=== PATIENT | male | born 1945 | race Caucasian/White ===

== ENCOUNTER 2019-05-10 17:16 | Emergency (ER) | payer BC, MEDICARE ==
[2019-05-10 18:00] VITALS: BP 134/86; PULSE 77; RESP 18; TEMP 98
--- NOTE | 2019-05-10 18:09 | ED ---
ENT HPI - General Chief complaint: ENT Stated complaint: gasoline in ear Time Seen by Provider: 05/10/19 18:06 Source: patient Mode of arrival: ambulatory Limitations: no limitations - History of Present Illness Initial comments: 73-year-old male presents emergency room for evaluation of gasping left ear. Patient states 4 hours prior to arrival he was working on a car when a gas line splashed him in the side of face he turned his head and the glass went into his ear denies involvement of the eye. Patient denies any pelletier of the face. Patient states that he has pain in the ear. He states has got better over the. The past 2 hours, he denies any bleeding of the ears. Patient states he was using a Q-tip and splashed some water with the ear. Patient denies any hearing loss or sharp pain he states it is burning. Remaining review of systems negative. Upon arrival patient appears well no signs acute distress in good spirits laughing and joking with as well as myself. - Related Data Allergies Allergy/AdvReac Type Severity Reaction Status Date / Time ciprofloxacin [From Cipro] Allergy Unknown Verified 05/10/19 18:00 Review of Systems ROS Statement: Those systems with pertinent positive or pertinent negative responses have been documented in the HPI. ROS Other: All systems not noted in ROS Statement are negative. Past Medical History Past Medical History: Hypertension History of Any Multi-Drug Resistant Organisms: None Reported Past Surgical History: No Surgical Hx Reported Past Psychological History: No Psychological Hx Reported Smoking Status: Light tobacco smoker Past Alcohol Use History: None Reported Past Drug Use History: None Reported General Exam - General Exam Comments Initial Comments: General: The patient is awake and alert, in no distress, and does not appear acutely ill. Eye: Pupils are equal, round and reactive to light, extra-ocular movements are intact. No nystagmus. There is normal conjunctiva bilaterally. No signs of icterus. Ears, nose, mouth and throat: There are moist mucous membranes and no oral lesions. Tympanic membranes are not erythematous no evidence of perforation. External auditory canal of the left. Appears morning around and conversant the right. No evidence of pelletier. Patient does smell of gasoline. No effusion of the tympanic membrane. Cardiovascular: There is a regular rate and rhythm. No murmur, rub or gallop is appreciated. Respiratory: Lungs are clear to auscultation, respirations are non-labored, breath sounds are equal. No wheezes, stridor, rales, or rhonchi. Musculoskeletal: Normal ROM, no tenderness. Strength 5/5. Sensation intact. Radial pulses equal bilaterally 2+. Neurological: A&O x 3. CN II-XII intact grossly, There are no obvious motor or sensory deficits. Coordination appears grossly intact. Speech is normal. Skin: Skin is warm and dry and no rashes or lesions are noted. Psychiatric: Cooperative, appropriate mood & affect, normal judgment. Limitations: no limitations Course Vital Signs 05/10/19 05/10/19 17:58 19:12 Temperature 98.0 F 98.0 F Pulse Rate 77 77 Respiratory 18 18 Rate Blood Pressure 134/86 134/86 O2 Sat by Pulse 96 96 Oximetry Medical Decision Making - Medical Decision Making Patient control contacted they state there is no intervention. Discussed case with Dr. Valerio he feels there is no intervention at this time. I did lightly flushed the eardrum. No severe pain during flushing. Patient does smell slightly of gasoline. No specific noted on ear examination. No tympanic membrane perforation. Patient appears well healing is intact to finger rub testing. Patient states that the pain has been subsiding gradually as the hours from the time of exposure increased. At this facility. Patient is stable for discharge with outpatient primary care follow-up. Return parameters were discussed the patient was discharged appearing well Disposition Clinical Impression: Left ear pain Narrative: Gasoline exposure inside left ear Disposition: HOME SELF-CARE Condition: Good Instructions (If sedation given, give patient instructions): Ear Foreign Body (ED), Earache (ED) Additional Instructions: Please use medication as discussed. Please follow-up with family doctor in the next 2 days.. Please return to emergency room if the symptoms increase or worsen or for any other concerns. Is patient prescribed a controlled substance at d/c from ED?: No Referrals: Raymundo Vargas MD [Primary Care Provider] - 1-2 days Time of Disposition: 18:23
== END 2019-05-10 19:12 | disposition home or self-care (01) ==
LOC: EC 17:16
DX: H92.02 Otalgia, left ear (principal); F17.200 Nicotine dependence, unspecified, uncomplicated; Z88.1 Allergy status to other antibiotic agents
CPT/HCPCS: 99282

== ENCOUNTER → 2023-09-04 | Outpatient (CLI) | payer MEDICARE ==
[2023-09-04 16:36] LABS: African American GFR (CKD) 62 (>60 ml/min/1.73 sqM); Blood Urea Nitrogen 23 mg/dL (9-20); Non-African American GFR(CKD) 54 (>60 ml/min/1.73 sqM)
--- NOTE | 2023-09-05 06:47 | CT ---
EXAMINATION TYPE: CT angio thor/abd pel aorta DATE OF EXAM: 09/04/2023 COMPARISON: None. HISTORY: Thoracic aortic aneurysm CT DLP: 1504.7 mGycm. Automated Exposure Control for Dose Reduction was Utilized. CONTRAST: CTA scan of the thorax, abdomen and pelvis is performed without and with IV Contrast, patient injecte d with 80 mL of Isovue 370. Aneurysm protocol with 3-D reconstructed images created on an independent workstation and reviewed FINDINGS: Vascular: No suspicious hyperdense material on the noncontrast images to suggest intramural hematoma. Normal three-vessel origin from the aortic arch with mild peripheral plaque. No significant stenosis . Patent bilateral renal arteries without significant stenosis. More moderate peripheral mixed plaque in the tortuous abdominal aorta measuring up to 3.0 cm in diameter coronal image 75. 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 No significant stenosis in the iliac ar mitra branches extending into femoral artery branches were there is moderate peripheral calcified plaq ue identified. No linear hypodensity to suggest dissection. Ascending aorta measures up to 4.8 cm and the root coronal image 48. Ascending aorta measures 3.8 cm diameter at level of the main pulmonary a rtery axial image 82. No significant stenosis in the celiac artery or SMA. LUNGS: Mild to minimal bibasilar linear scarring and/or atelectasis otherwise lungs are clear. Ther e is no pleural effusion or pneumothorax seen. The tracheobronchial tree is patent. MEDIASTINUM: There are no greater than 1 cm hilar or mediastinal lymph nodes. No cardiomegaly or pe ricardial effusion is seen. Moderate to severe three-vessel coronary artery calcification is noted. LIVER/GB: Large intraluminal calcified gallstone. Gallbladder shows no surrounding ill-defined fluid or fat stranding. There is 6.7 cm simple appearing thin-walled cyst in the liver dome. A few subcenti meter low dense lesions throughout the liver too small to further characterize but presumably benign PANCREAS: No significant abnormality is seen. SPLEEN: No significant abnormality is seen. ADRENALS: Low-density change of both adrenal glands consistent with benign lipid rich hyperplasia. KIDNEYS: No significant abnormality is seen. BOWEL: Sigmoid colonic diverticula. No CT evidence for acute diverticulitis GENITAL ORGANS: No gross abnormality seen. LYMPH NODES: No greater than 1cm abdominal or pelvic lymph nodes are appreciated. OSSEOUS STRUCTURES: Multilevel spurring in the thoracolumbar spine. Multilevel Disc space narrowing i n the lumbar spine. OTHER: No significant additional abnormality is seen. IMPRESSION: Ascending aortic aneurysm up to 4.8 cm at the level of the aortic root. Tortuous course t o the descending aorta without definitive greater than 3.0 cm AAA. 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
== END | disposition home or self-care (01) ==
LOC: RADCTMAIN 14:58
PROVIDERS: ATTEND Internal Medicine
DX: I71.21 Aneurysm of the ascending aorta, without rupture (principal); I72.3 Aneurysm of iliac artery
CPT/HCPCS: 82565; 84520; 71275; 36415; 74174; Q9967

== ENCOUNTER 2023-11-05 10:16 | Day surgery (SDC) | payer MEDICARE ==
[~2023-11-05 10:16] MED LIST: ALPRAZolam 0.25 MG TAB PO PRN; ALPRAZolam 0.5 MG TAB PO PRN; HEPARIN SODIUM,PORCINE (1 ML) 2,500 UNIT in SODIUM CHLORIDE 0.9% 250 ML IRRIGATION PRN; HEPARIN SODIUM,PORCINE 10,000 UNIT in SODIUM CHLORIDE 0.9% 1,000 ML IRRIGATION PRN; NITROGLYCERIN SL TABS 0.4 MG TAB SUBLINGUAL PRN
[2023-11-05] MEDS: SODIUM CHLORIDE 0.9% 1,000 ML IV ONE (10:27)
[2023-11-05] MEDS: ASPIRIN 325 MG TAB PO STA (10:37)
[2023-11-05] MEDS: SODIUM CHLORIDE 0.9% 1,000 ML in EMPTY BAG 1 BAG IV SCH (10:38)
[2023-11-05] MEDS ORDERED: ASPIRIN 325 MG TAB ONE (10:52)
[2023-11-05 11:01] VITALS: RESP 16; TEMP 98.4
[2023-11-05 11:03] LABS: INR 1.2 (<1.2); Prothrombin Time 13.2 sec (10.0-12.5)
[2023-11-05] MEDS ORDERED: VERAPAMIL 2.5 MG/ML 2 ML AMP ONE (11:47)
[2023-11-05] MEDS ORDERED: LIDOCAINE 1% INJ 10MG/ML (20 ML MDV) ONE (11:47)
[2023-11-05] MEDS ORDERED: fentaNYL (PF) 50 MCG/ML 2 ML AMP ONE (11:48)
[2023-11-05] MEDS: BENZOCAINE SPRAY 1 CAN TOPICAL ONE (12:16)
[2023-11-05] MEDS: fentaNYL (PF) 50 MCG/ML 2 ML AMP IVP ONE (12:20)
[2023-11-05] MEDS: MIDAZOLAM 2 MG/2 ML VIAL IVP ONE (12:20)
--- NOTE | 2023-11-05 12:43 | P.PCN ---
Date of Procedure: 11/05/23 Description of Procedure: Indication: Mitral regurgitation Procedure Description: After explaining the procedure to the patient, it's risk and complications, blood pressure, heart rate and O2 saturation were monitored. The throat was sprayed with Cetacaine. Patient received 2 mg intravenous Versed, 50 mcg intravenous fentanyl. The probe was introduced into the esophagus without difficulty. Images were obtained. Following that, the probe was removed. There was no immediate complication. Findings: Severe left atrial dilatation was noted. Left atrial appendage is normal. Left ventricle systolic function is mildly impaired, ejection fraction 45 to 50%. The aortic valve revealed fibrocalcific changes of the aortic cusps with preserved opening. Mild thickening of the mitral valve leaflets was noted. The tricuspid valve and pulmonic valve appears to be normal. Descending thoracic aorta revealed mild atherosclerotic changes. No pericardial fusion was noted. Contrast bubble study revealed no shunting across the interatrial septum. Doppler: Pulse wave and color Doppler were obtained, and revealed moderate mitral and tricuspid regurgitation. Mild aortic regurgitation was noted. There was no shunting across the interatrial septum. Conclusion: 1. Dilated left atrium 2. Mildly impaired ventricle static function with global hypokinesis 3. Moderate mitral and tricuspid regurgitation 4. Moderate aortic regurgitation 5. No shunting across the interatrial septum
[2023-11-05] MEDS: IV FLUID CONTINUATION 700 ML IV ONE (12:47)
[2023-11-05] MEDS: LIDOCAINE 1% INJ 10MG/ML (20 ML MDV) SQ ONE (12:48)
[2023-11-05] MEDS: VERAPAMIL SYRINGE (5 MG/10 ML) INTRAARTER ONE (12:50)
[2023-11-05] MEDS: HEPARIN SODIUM 1,000 UN/ML (10ML VL) IVP ONE (13:08)
[2023-11-05 13:22] LABS: O2 Sat Blood Gas 61.6 %
[2023-11-05 13:24] LABS: O2 Sat Blood Gas 57.6 %
[2023-11-05 13:25] LABS: O2 Sat Blood Gas 90.7 %
[2023-11-05] MEDS: IOPAMIDOL-370 100ML BTL INTRATHECA ONE (13:37)
[2023-11-05] MEDS ORDERED: RX INFO: IV CONTRAST WAS GIVEN 1 EACH MISC MISCELLANE PRN (13:40)
[2023-11-05] MEDS ORDERED: WARFARIN 5 MG TAB PO SCH (13:45)
[2023-11-05] MEDS ORDERED: SODIUM CHLORIDE 0.9% 1,000 ML IV SCH (13:45)
--- NOTE | 2023-11-05 13:51 | P.CARDCATH ---
Date of Procedure: 11/05/23 Description of Procedure: Cardiac Catheterization: The patient is a 78-year-old male with a known history of CAD, status post stenting of the LAD in 2013 who recently had an abnormal MPI and evidence of progression of his mitral regurgitation. Recommendations were made regarding cardiac catheterization, the risks and the complications were discussed with the patient who is in full understanding and agreement. 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 Using Xylocaine Anesthesia and modified Seldinger technique, a 6-[place] sheath was introduced in the right radial artery . The intravenous catheter in the right basilic vein was exchanged to a 6 [place] sheath. Right heart catheterization was performed using a [place] catheter, multiple pressure and samples were obtained. Cardiac output by thermodilution was calculated. Subsequently, selective coronary angiography was performed using a 5-[place] 5 bend right Akhil catheter and 6 [place] 4.5 bend left Akhil catheter. Attempt to cannulate the coronary arteries using a 3.5 right and left and a 4 bend left Akhil was unsuccessful. Multiple views of the coronary artery including hemiaxial views were obtained. The right Akhil catheter was used to cross the aortic valve and LVEDP was calculated. Following that, catheter and sheath were removed. Hemostasis was obtained with deployment of vascular band . There was no immediate complication. Patient was returned to room in stable condition. Of note, the patient received a total of 4500 units of intravenous heparin as well as intra-arterial verapamil. Findings: Fluoroscopy: Calcification of all the coronary arteries was noted. Left main: This is an ectatic vessel, bifurcating into LAD and left circumflex, short, left main has no obstructive disease LAD: This is a large size vessel, reaching to the apex, ectatic proximally. Giving rise to a diagonal branch in the midsegment that has a 60 to 70% stenosis. The stented segment in the mid LAD is patent with 20 to 30% in-stent restenosis. Left circumflex: This is a large nondominant vessel giving rise to 2 obtuse marginal branch. The vessel is ectatic throughout its course. After the takeoff of the first twos marginal branch the vessel has a 90% stenosis and there is another area of stenosis of about 80 to 90% in the second obtuse marginal branch. RCA: This is a large dominant vessel, bifurcating into PDA and PLV. Ectatic in the proximal segment and calcified. The proximal segment has a 95% stenosis. The rest of the vessel has diffuse intimal disease without high-grade stenosis Left Ventriculogram: Not performed Hemodynamics: Cardiac output by Adrienne of 5 L/min and by thermal 5.5 L/min. Pulmonary artery saturation 62% right atrial 58%, arterial 91%. Pulmonary artery systolic of 36 with diastolic of 10 and a mean of 22 m mercury, pulmonary capillary wedge pressure V wave of 20 with a mean of 22 mmHg, right ventricle systolic of 38 with end-diastolic of 7 mmHg, right atrium V wave of 10 with a mean of 5 mmHg. LVEDP was 12-20 mmHg Conclusion: 1. Calcified coronary arteries 2. Severe stenosis in the proximal RCA and mid left circumflex and second OM 3. Patent stent in the LAD 4. Ectatic vessel Recommendations: I would recommend to continue medical therapy, he will be evaluated for the need to undergo revascularization of his RCA after evaluation of his mitral and tricuspid valve. In the meantime we will continue medical therapy with aggressive coronary risks modification. The findings and the recommendations were discussed with the patient and the family and they were in full understanding and agreement. Duration of sedation is 42 minutes.
[2023-11-05 16:52] VITALS: BP 115/81; PULSE 72
[2023-11-05] MEDS ORDERED: cloNIDine HCL 0.2 MG TAB PO SCH (21:00)
[2023-11-06] MEDS ORDERED: ATORVASTATIN 20 MG TAB PO SCH (09:00)
[2023-11-06] MEDS ORDERED: [UNRECOGNIZED DRUG - OTHER] PO SCH (09:00)
[2023-11-06] MEDS ORDERED: METOPROLOL SUCCINATE (ER) 50 MG TAB.ER.24H PO SCH (09:00)
[2023-11-06] MEDS ORDERED: AMLODIPINE BESYLATE PO SCH (09:00)
[2023-11-06] MEDS ORDERED: VALSARTAN PO SCH (09:00)
[2023-11-08] MEDS ORDERED: WARFARIN 2.5 MG TAB PO SCH (13:41)
== END 2023-11-05 17:13 | disposition home or self-care (01) ==
LOC: CATHCVL 10:16
PROVIDERS: ATTEND Internal Medicine Interventional Cardiology
DX: I08.3 Combined rheumatic disorders of mitral, aortic and tricuspid valves (principal); I48.91 Unspecified atrial fibrillation; I25.10 Atherosclerotic heart disease of native coronary artery without angina pectoris; I10 Essential (primary) hypertension; E78.5 Hyperlipidemia, unspecified; I71.21 Aneurysm of the ascending aorta, without rupture; Z87.891 Personal history of nicotine dependence; Z79.01 Long term (current) use of anticoagulants; Z79.899 Other long term (current) drug therapy
CPT/HCPCS: 93312; 93320; 93325; 93460; 85018; 82810; 85610; C1769; C1894; C1751; J2250; J2001; J3010; J1644; Q9967

== ENCOUNTER 2024-03-31 05:06 | Emergency (ER) | payer MEDICARE ==
--- NOTE | 2024-05-04 12:14 | XR ---
Site ID [facility] Patient Tony Dolan ID [id number] Order # Procedure XR HIP COMPLETE(LT) EXAMINATION TYPE: XR Hip Complete LT DATE OF EXAM: 04/01/2024 8:46 AM CLINICAL INDICATION: Pain and weakness COMPARISON: THIS EXAM WAS READ DURING PACS DOWNTIME, NO PRIORS AVAILABLE. TECHNIQUE: XR Hip Complete LT; hip was examined in the frontal and lateral projections and a AP pelvi s. FINDINGS/IMPRESSION: 1. 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 2. No evidence of fracture. 3. Severe atherosclerosis of the arterial vasculature. 4. Surgical clips project over the pelvis.
== END 2024-03-31 09:40 | disposition home or self-care (01) ==
LOC: EC 05:06
DX: R53.1 Weakness (principal)
CPT/HCPCS: 73502; 93005; 99285

== ENCOUNTER → 2024-04-26 | Outpatient (CLI) | payer MEDICARE ==
--- NOTE | 2024-04-26 13:45 | US ---
EXAMINATION TYPE: US kidneys/renal and bladder DATE OF EXAM: 04/26/2024 COMPARISON: CT 2023 CLINICAL INDICATION: Male, 78 years old with history of R35.0 FREQUENCY OF MICTURITION; EXAM MEASUREMENTS: Right Kidney: 9.1 x 5.4 x 4.6 cm Left Kidney: 9.2 x 5.4 x 4.1 cm Right Kidney: no hydronephrosis or masses seen Left Kidney: 2 cortical cysts measuring 1.4cm and 1.1cm Bladder: not fully distended, appears wnl as seen Bilateral Jets seen: no There is no evidence for hydronephrosis at this point in time. Cortical medullary differentiation is maintained bilaterally. No nephrolithiasis is seen. 2 simple appearing left renal cortical cysts id entified. No solid renal masses are identified. The urinary bladder is anechoic and underdistended. Bilateral ureteral jets are not seen. IMPRESSION: 1. No hydronephrosis or shadowing renal calculi. 2. Left renal cysts.
== END | disposition home or self-care (01) ==
LOC: RADUSWWP 12:25
PROVIDERS: ATTEND Internal Medicine
DX: R35.0 Frequency of micturition
CPT/HCPCS: 76770

== ENCOUNTER 2024-08-14 23:03 | Inpatient (IN) | payer MEDICARE ==
--- NOTE | 2024-08-14 23:11 | ED ---
General Adult HPI - General Source: patient, family Mode of arrival: EMS Limitations: no limitations <Dallas Turner - Last Filed: 08/26/24 20:54> <Theron Westfall - Last Filed: 08/29/24 18:39> - General Chief complaint: Abdominal Pain Stated complaint: MADDIE Time Seen by Provider: 08/14/24 23:11 - History of Present Illness Initial comments: Quick note: 79-year-old male presenting chief complaint of difficulty breathing. States that he felt like he could not get enough air. No chest pain. When EMS arrived at his house he was at 88% on room air. He does not use oxygen at home. He is a smoker. (Dallas Turner) - Related Data Home Medications Medication Instructions Recorded Confirmed Amlodipine Besylate/Valsartan 1 tab PO HS 10/31/23 08/15/24 [Amlodipine Besylate/Valsartan 10-160 mg] Atorvastatin [Lipitor] 20 mg PO HS 10/31/23 08/15/24 Metoprolol Succinate (ER) [Toprol 50 mg PO DAILY 10/31/23 08/15/24 XL] Nitroglycerin 0.4 mg SL Q5M PRN 10/31/23 08/15/24 Potassium Chloride ER [K-Dur 20] 20 meq PO BID 10/31/23 08/15/24 Warfarin [Coumadin] 5 mg PO SUMOWETHFR@209910/31/23 08/15/24 cloNIDine HCL [Catapres] 0.2 mg PO BID 10/31/23 08/15/24 Warfarin [Coumadin] 2.5 mg PO TUSA@209908/15/24 08/15/24 Previous Rx's Medication Instructions Recorded Aspirin 81 mg PO DAILY 30 Days #30 tab 08/19/24 Allergies Allergy/AdvReac Type Severity Reaction Status Date / Time ciprofloxacin [From Cipro] Allergy Unknown Verified 08/15/24 09:18 Review of Systems ROS Other: All systems not noted in ROS Statement are negative. <Dallas Turner - Last Filed: 08/26/24 20:54> ROS Other: All systems not noted in ROS Statement are negative. <Theron Westfall - Last Filed: 08/29/24 18:39> ROS Statement: Those systems with pertinent positive or pertinent negative responses have been documented in the HPI. Past Medical History Past Medical History: Atrial Fibrillation, Cancer, Hyperlipidemia, Hypertension, Prostate Disorder Additional Past Medical History / Comment(s): prostate cancer, History of Any Multi-Drug Resistant Organisms: None Reported Past Surgical History: Prostate Surgery Additional Past Surgical History / Comment(s): prostatectomy Past Anesthesia/Blood Transfusion Reactions: No Reported Reaction Past Psychological History: No Psychological Hx Reported Smoking Status: Current some day smoker - Past Family History Father Family Medical History: No Reported History <Dallas Turner - Last Filed: 08/26/24 20:54> General Exam Limitations: no limitations <Dallas Turner - Last Filed: 08/26/24 20:54> Limitations: no limitations General appearance: alert, in no apparent distress Head exam: Present: atraumatic, normocephalic Eye exam: Present: normal appearance. Absent: scleral icterus, conjunctival injection ENT exam: Present: normal oropharynx Neck exam: Present: normal inspection Respiratory exam: Present: normal lung sounds bilaterally, rales. Absent: wheezes, rhonchi, stridor, accessory muscle use Cardiovascular Exam: Present: regular rate, normal rhythm, systolic murmur. Absent: diastolic murmur, rubs, gallop GI/Abdominal exam: Present: soft. Absent: distended, tenderness, guarding, rebound, rigid, mass Extremities exam: Present: normal inspection, normal capillary refill. Absent: pedal edema, calf tenderness Back exam: Present: normal inspection. Absent: CVA tenderness (R), CVA tenderness (L) Neurological exam: Present: alert Skin exam: Present: warm, dry, intact, normal color. Absent: rash <Theron Westfall - Last Filed: 08/29/24 18:39> - General Exam Comments Initial Comments: Visual Physical Exam Vital signs reviewed General: Well-appearing, nontoxic, no acute distress. Head: Normocephalic, atraumatic Eyes: PERRLA, EOMI ENT: Airway patent Chest: Nonlabored breathing Skin: No visual rash, normal skin tone Neuro: Alert and oriented 3 Musculoskeletal: No gross abnormalities (Dallas Turner) Course Vital Signs 08/14/24 08/15/24 08/15/24 23:05 00:50 00:52 Temperature 98.3 F Pulse Rate 72 75 87 Respiratory 19 18 20 Rate Blood Pressure 118/76 131/96 O2 Sat by Pulse 93 L 95 Oximetry 08/15/24 08/15/24 08/15/24 01:02 02:00 03:00 Temperature Pulse Rate 71 70 77 Respiratory 18 18 Rate Blood Pressure 130/91 128/82 O2 Sat by Pulse 96 96 Oximetry 08/15/24 08/15/24 08/15/24 04:00 08:28 09:32 Temperature Pulse Rate 77 74 77 Respiratory 18 20 20 Rate Blood Pressure 144/98 139/114 148/101 O2 Sat by Pulse 96 96 97 Oximetry 08/15/24 08/15/24 08/15/24 12:02 14:00 15:30 Temperature Pulse Rate 68 76 76 Respiratory 20 20 20 Rate Blood Pressure 142/101 138/99 140/106 O2 Sat by Pulse 96 95 95 Oximetry 08/15/24 08/15/24 08/15/24 17:00 19:00 20:53 Temperature Pulse Rate 87 80 87 Respiratory 20 18 22 Rate Blood Pressure 109/63 139/101 130/100 O2 Sat by Pulse 95 93 L 93 L Oximetry 08/15/24 08/15/24 08/16/24 22:00 23:00 01:00 Temperature Pulse Rate 93 96 74 Respiratory 22 22 18 Rate Blood Pressure 147/104 139/99 121/85 O2 Sat by Pulse 94 L 92 L 94 L Oximetry 08/16/24 08/16/24 08/16/24 04:00 05:00 06:00 Temperature Pulse Rate 75 77 74 Respiratory 16 21 18 Rate Blood Pressure 125/80 127/89 128/87 O2 Sat by Pulse 90 L 90 L 91 L Oximetry 08/16/24 08/16/24 08/16/24 08:51 12:01 16:00 Temperature 98.3 F Pulse Rate 101 H 64 75 Respiratory 18 23 18 Rate Blood Pressure 131/84 133/95 122/89 O2 Sat by Pulse 93 L 98 94 L Oximetry 08/16/24 17:54 Temperature 98 F Pulse Rate 86 Respiratory 18 Rate Blood Pressure 137/89 O2 Sat by Pulse 96 Oximetry EKG Findings - EKG Comments: EKG Findings:: Similar to comparison ECG - EKG Results: EKG: interpreted by ERMD, normal axis - Dysrhythmias: Supraventricular dysrhythmia: atrial fibrillation (Rate approximately 87 bpm) - Blocks, [place], Hypertrophy, ST Abn: Repolarization changes or abnormalities: nonspecific abnormality, ST segment, and/or T wave <Theron Westfall - Last Filed: 08/29/24 18:39> Medical Decision Making - Lab Data Result diagrams: 08/16/24 05:39 08/18/24 07:27 <Dallas Turner - Last Filed: 08/26/24 20:54> - Lab Data Result diagrams: 08/16/24 05:39 08/18/24 07:27 <Theron Westfall - Last Filed: 08/29/24 18:39> - Medical Decision Making I performed the quick note portion of this visit, electronically signed Dallas Turner PA-C (Dallas Turner) The patient had chest x-ray that I interpreted as showing mild bilateral infiltrates suggestive of viral pneumonia. No pneumothorax or congestive heart failure Was pt. sent in by a medical professional or institution ([facility] Silva, DRENCHER, urgent care, hospital, or long term...) When possible be specific @ -[No] Did you speak to anyone other than the patient for history (EMS, parent, family, police, friend...)? What history was obtained from this source @ -[No] Did you review nursing and triage notes (agree or disagree)? Why? @ -[I reviewed and agree with nursing and triage notes] Were old charts reviewed (outside hosp., previous admission, EMS record, old EKG, old radiological studies, urgent care reports/EKG's, long term records)? Report findings @ -[No old charts were reviewed] Differential Diagnosis (chest pain, altered mental status, abdominal pain women, abdominal pain men, vaginal bleeding, weakness, fever, dyspnea, syncope, headache, dizziness, GI bleed, back pain, seizure, CVA, palpatations, mental health, musculoskeletal)? @ -[Differential Dyspnea: Coronary syndrome, arrhythmia, tamponade, asthma, COPD, pulmonary embolism, pneumonia, pneumothorax, pulmonary effusion, anaphylaxis, diabetic ketoacidosis, flailed chest, pulmonary contusion, diaphragmatic rupture, anemia, neuromuscular, this is not meant to be an all-inclusive list. EKG interpreted by me (3pts min.). @ -[I interpreted as above] X-rays interpreted by me (1pt min.). @ -[I interpreted as above CT interpreted by me (1pt min.). @ -[None done] U/S interpreted by me (1pt. min.). @ -[None done] What testing was considered but not performed or refused? (CT, X-rays, U/S, labs)? Why? @ -[None] What meds were considered but not given or refused? Why? @ -[None] Did you discuss the management of the patient with other professionals (professionals i.e. DrNahomy, PA, DRENCHER, lab, RT, psych nurse, health social work professor, herpetologist, teacher, security patrol officer, behavioral health case manager)? Give summary @ -[No] Was smoking cessation discussed for >3mins.? @ -[No] Was critical care preformed (if so, how long)? @ -[No] Were there social determinants of health that impacted care today? How? (Homelessness, low income, unemployed, alcoholism, drug addiction, transportation, low edu. Level, literacy, decrease access to med. care, senior living, rehab)? @ -[No] Was there de-escalation of care discussed even if they declined (Discuss DNR or withdrawal of care, Hospice)? DNR status @ -[No] What co-morbidities impacted this encounter? (DM, HTN, Smoking, COPD, CAD, Cancer, CVA, ARF, Chemo, Hep., AIDS, mental health diagnosis, sleep apnea, morbid obesity)? @ -[None] Was patient admitted / discharged? Hospital course, mention meds given and route, prescriptions, significant lab abnormalities, going to OR and other pertinent info. @ -[Patient is 79-year-old man with dyspnea and was found to have influenza A and probable viral pneumonia related to this. The patient has elevated troponin consistent with NSTEMI. patient will be admitted to have cardiology and pulmonology consultation Undiagnosed new problem with uncertain prognosis? @ -[No] Drug Therapy requiring intensive monitoring for toxicity (Heparin, Nitro, Insulin, Cardizem)? @ -[No] Were any procedures done? @ -[No] Diagnosis/symptom? @ -[Acute dyspnea Acute influenza A pneumonia Acute NSTEMI Acute, or Chronic, or Acute on Chronic? @ -[Acute Uncomplicated (without systemic symptoms) or Complicated (systemic symptoms)? @ -[Complicated by dyspnea Side effects of treatment? @ -[No] Exacerbation, Progression, or Severe Exacerbation? @ -[No] Poses a threat to life or bodily function? How? (Chest pain, USA, PR, pneumonia, PE, COPD, DKA, ARF, appy, cholecystitis, CVA, Diverticulitis, Homicidal, Suicidal, threat to staff... and all critical care pts) @ -[Yes All treatments are based on ideal body weight as in ED triage (Theron Westfall) - Lab Data Lab Results 08/14/24 08/14/24 08/14/24 Range/Units 23:27 23:27 23:27 WBC 5.2 (3.8-10.6) k/uL RBC 3.57 L (4.30-5.90) m/uL Hgb 12.3 L (13.0-17.5) gm/dL Hct 36.4 L (39.0-53.0) % MCV 101.8 H (80.0-100.0) fL MCH 34.5 (25.0-35.0) pg MCHC 33.9 (31.0-37.0) g/dL RDW 14.0 (11.5-15.5) % Plt Count 105 L (150-450) k/uL MPV 7.7 Neutrophils % 85 % Lymphocytes % 9 % Monocytes % 4 % Eosinophils % 0 % Basophils % 0 % Neutrophils # 4.4 (1.3-7.7) k/uL Lymphocytes # 0.5 L (1.0-4.8) k/uL Monocytes # 0.2 (0-1.0) k/uL Eosinophils # 0.0 (0-0.7) k/uL Basophils # 0.0 (0-0.2) k/uL Macrocytosis Slight PT 22.9 H (10.0-12.5) sec INR 2.3 H (<1.2) APTT 27.4 (22.0-30.0) sec Sodium 138 (137-145) mmol/L Potassium 3.6 (3.5-5.1) mmol/L Chloride 107 (98-107) mmol/L Carbon Dioxide 20 L (22-30) mmol/L Anion Gap 11 mmol/L BUN 29 H (9-20) mg/dL Creatinine 1.27 H (0.66-1.25) mg/dL Est GFR (CKD-EPI)AfAm 62 (>60 ml/min/1.73 sqM) Est GFR (CKD-EPI)NonAf 54 (>60 ml/min/1.73 sqM) Glucose 87 (74-99) mg/dL Plasma Lactic Acid Wade (0.7-2.0) mmol/L Calcium 8.7 (8.4-10.2) mg/dL Magnesium 1.9 (1.6-2.3) mg/dL Total Bilirubin 0.9 (0.2-1.3) mg/dL AST 81 H (17-59) U/L ALT 24 (4-49) U/L Alkaline Phosphatase 67 (38-126) U/L Troponin I (0.000-0.034) ng/mL NT-Pro-B Natriuret Pep 7790 pg/mL Total Protein 6.0 L (6.3-8.2) g/dL Albumin 3.5 (3.5-5.0) g/dL Influenza Type A (PCR) (Not Detectd) Influenza Type B (PCR) (Not Detectd) RSV (PCR) (Not Detectd) SARS-CoV-2 (PCR) (Not Detectd) 08/14/24 08/14/24 08/14/24 Range/Units 23:27 23:27 23:27 WBC (3.8-10.6) k/uL RBC (4.30-5.90) m/uL Hgb (13.0-17.5) gm/dL Hct (39.0-53.0) % MCV (80.0-100.0) fL MCH (25.0-35.0) pg MCHC (31.0-37.0) g/dL RDW (11.5-15.5) % Plt Count (150-450) k/uL MPV Neutrophils % % Lymphocytes % % Monocytes % % Eosinophils % % Basophils % % Neutrophils # (1.3-7.7) k/uL Lymphocytes # (1.0-4.8) k/uL Monocytes # (0-1.0) k/uL Eosinophils # (0-0.7) k/uL Basophils # (0-0.2) k/uL Macrocytosis PT (10.0-12.5) sec INR (<1.2) APTT (22.0-30.0) sec Sodium (137-145) mmol/L Potassium (3.5-5.1) mmol/L Chloride (98-107) mmol/L Carbon Dioxide (22-30) mmol/L Anion Gap mmol/L BUN (9-20) mg/dL Creatinine (0.66-1.25) mg/dL Est GFR (CKD-EPI)AfAm (>60 ml/min/1.73 sqM) Est GFR (CKD-EPI)NonAf (>60 ml/min/1.73 sqM) Glucose (74-99) mg/dL Plasma Lactic Acid Wade 1.4 (0.7-2.0) mmol/L Calcium (8.4-10.2) mg/dL Magnesium (1.6-2.3) mg/dL Total Bilirubin (0.2-1.3) mg/dL AST (17-59) U/L ALT (4-49) U/L Alkaline Phosphatase (38-126) U/L Troponin I 4.630 H* (0.000-0.034) ng/mL NT-Pro-B Natriuret Pep pg/mL Total Protein (6.3-8.2) g/dL Albumin (3.5-5.0) g/dL Influenza Type A (PCR) Detected A (Not Detectd) Influenza Type B (PCR) Not Detected (Not Detectd) RSV (PCR) Not Detected (Not Detectd) SARS-CoV-2 (PCR) Not Detected (Not Detectd) Disposition <Dallas Turner - Last Filed: 08/26/24 20:54> Is patient prescribed a controlled substance at d/c from ED?: No <Theron Westfall - Last Filed: 08/29/24 18:39> Clinical Impression: Pneumonia, Influenza A, NSTEMI (non-ST elevated myocardial infarction) Disposition: ADMITTED IP TO THIS HOSP Condition: Stable
--- NOTE | 2024-08-14 23:43 | XR ---
EXAMINATION TYPE: XR chest 2V DATE OF EXAM: 08/14/2024 11:32 PM COMPARISON: CTA thoracoabdominal pelvis aorta 09/04/2023, chest radiograph 07/08/2013 TECHNIQUE: XR chest 2V Frontal and lateral views of the chest. CLINICAL INDICATION:Male, 79 years old with history of difficulty breathing; FINDINGS: Lungs/Pleura: There is flattening of the diaphragm with increased lucency of the lungs. No evidence o f pneumothorax or pneumothorax. Patchy left mid and lower lung airspace opacities. Pulmonary vascularity: Unremarkable. Heart/mediastinum: Cardiomediastinal silhouette is enlarged and stable. Atherosclerotic calcificatio ns are seen in the aorta. Musculoskeletal: Multiple level degenerative disc disease changes seen throughout the spine. IMPRESSION: 1. Patchy mid and lower lung airspace opacities concerning for pneumonia. 2. COPD changes. [facility], , 08/14/2024 11:40 PM
[2024-08-15 00:01] LABS: Basophils % (A) 0 %; Eosinophils % (A) 0 %; HCT 36.4 % (39.0-53.0); HGB 12.3 gm/dL (13.0-17.5); Lymphocytes # (A) 0.5 k/uL (1.0-4.8); Lymphocytes % (A) 9 %; MCH 34.5 pg (25.0-35.0); MCHC 33.9 g/dL (31.0-37.0); MCV 101.8 fL (80.0-100.0); Macrocytosis Slight; Mean Platelet Volume 7.7; Monocytes # (A) 0.2 k/uL (0-1.0); Monocytes % (A) 4 %; Neutrophils # (A) 4.4 k/uL (1.3-7.7); Neutrophils % (A) 85 %; Platelet Count 105 k/uL (150-450); RBC 3.57 m/uL (4.30-5.90); WBC 5.2 k/uL (3.8-10.6)
[2024-08-15 00:11] LABS: INR 2.3 (<1.2); Partial Thromboplastin Time 27.4 sec (22.0-30.0); Prothrombin Time 22.9 sec (10.0-12.5)
[2024-08-15 00:21] LABS: ALT 24 U/L (4-49); African American GFR (CKD) 62 (>60 ml/min/1.73 sqM); Albumin 3.5 g/dL (3.5-5.0); Anion Gap 11 mmol/L; Blood Urea Nitrogen 29 mg/dL (9-20); Calcium 8.7 mg/dL (8.4-10.2); Carbon Dioxide 20 mmol/L (22-30); Chloride 107 mmol/L (98-107); Glucose 87 mg/dL (74-99); Non-African American GFR(CKD) 54 (>60 ml/min/1.73 sqM); Sodium 138 mmol/L (137-145); Total Bilirubin 0.9 mg/dL (0.2-1.3)
[2024-08-15 00:26] LABS: AST 81 U/L (17-59); Alkaline Phosphatase 67 U/L (38-126); Magnesium 1.9 mg/dL (1.6-2.3); Potassium 3.6 mmol/L (3.5-5.1)
[2024-08-15 00:30] LABS: NT-Pro-B-Type Natriuretic Pept 7790 pg/mL
[2024-08-15] MEDS: predniSONE 20 MG TAB PO STA (00:49)
[2024-08-15] MEDS: ALBUTEROL NEBULIZED 2.5 MG/3 ML INHALATION STA (00:51)
[2024-08-15] MEDS ORDERED: NITROGLYCERIN SL TABS 0.4 MG TAB SUBLINGUAL PRN (01:03)
[2024-08-15] MEDS: HEPARIN SODIUM 1,000 UN/ML (10ML VL) IV ONE (01:33)
[2024-08-15] MEDS: HEPARIN SOD,PORK IN 0.45% NACL 25,000 UNIT in 0.45% NACL 1 250ML.BAG IV SCH (01:34)
[2024-08-15] MEDS: AZITHROMYCIN 500 MG TAB PO STA (01:45)
[2024-08-15 07:03] LABS: Appearance,Urine Clear (Clear); Bilirubin,Urine Negative (Negative); Blood,Urine Negative (Negative); Color,Urine Yellow; Glucose,Urine (UA) Negative (Negative); Ketones,Urine 1+ (Negative); Leukocyte Esterase,Urine Negative (Negative); Nitrite,Urine Negative (Negative); PH, Urine 5.5 (5.0-8.0); Protein,Urine Trace (Negative); Urobilinogen,Urine <2.0 mg/dL (<2.0)
[2024-08-15] MEDS ORDERED: ATORVASTATIN 20 MG TAB PO SCH (09:00)
[2024-08-15] MEDS: amLODIPine 10 MG TAB PO SCH ×2 (09:23→20:55)
[2024-08-15] MEDS: VALSARTAN 160 MG TAB PO SCH ×2 (09:23→20:55)
[2024-08-15] MEDS: METOPROLOL SUCCINATE (ER) 50 MG TAB.ER.24H PO SCH (09:33)
[2024-08-15] MEDS: POTASSIUM CHLORIDE ER 20 MEQ TAB.ER PO SCH ×2 (09:33→09:39)
[2024-08-15] MEDS: cloNIDine HCL 0.2 MG TAB PO SCH (09:33)
[2024-08-15 09:52] LABS: INR 2.1 (<1.2)
[2024-08-15] MEDS: OSELTAMIVIR 30 MG CAP PO SCH (12:07)
--- NOTE | 2024-08-15 12:38 | P.CRDCN ---
History of Present Illness History of present illness: HISTORY OF PRESENT ILLNESS: This is a 79-year-old male with a past medical history significant for coronary artery disease, valvular heart disease, cardiomyopathy, hypertension, hyperlipi demia and nicotine dependence. Patient follows in the office with Dr. Mann. We have been asked to see the patient in consultation for non-STEMI. Patient examined at the bedside in the emergency room. Patient presented to the hospital for chief complaint of shortness of breath. Patient states that he felt like he could not take a deep breath for the past few days. He also reports having a fever at home. He denies having any chest pain or pressure. Patient was found to be positive for influenza. Patient was also found to have elevated troponins and was started on IV heparin. At the time of examination, patient denies any chest pain or pressure. Vital signs are stable. DIAGNOSTICS: - EKG reveals atrial fibrillation with T wave inversions inferiorly - Chest xray patchy mid and lower lung airspace opacities concerning for pneumonia. COPD changes. - Laboratory data: WBC 5.2. Hemoglobin 12.3. Platelet count 105. INR 2.1. Sodium 138. Potassium 3.6. BUN 29. Creatinine 1.27. Lactic acid 1.4. Troponin 4.630. 4.210. 3.220. - Current home cardiac medications include amlodipinevalsartan 10-160 mg at night, atorvastatin 20 mg at night, metoprolol succinate 50 mg daily, clonidine 0.2 mg twice a day, warfarin 2.5 mg on Friday and Friday and 5 mg Friday and Friday - Most recent echocardiogram obtained in March 2024 revealed ejection fraction 47%, moderate AR, moderate to severe MR, mild TR - Cardiac catheterization history: October 2023 revealing calcified coronary arteries, severe stenosis in the proximal RCA and mid left circumflex and second OM. Patent stent in the LAD REVIEW OF SYSTEMS: At the time of my exam: CONSTITUTIONAL: Denies fever or chills. HEENT: Denies blurred vision, vision changes, or eye pain. Denies hemoptysis CARDIOVASCULAR: Denies chest pain. Denies orthopnea. Denies PND. Denies palpitations RESPIRATORY: Reports shortness of breath. GASTROINTESTINAL: Denies abdominal pain. Denies nausea or vomiting. HEMATOLOGIC: Denies bleeding disorders. GENITOURINARY: Denies any blood in urine. SKIN: Denies pruitis. Denies rash. PHYSICAL EXAM: VITAL SIGNS: Reviewed. GENERAL: Well-developed in no acute distress. HEENT: Head is normocephalic. Pupils are equal, round. Sclerae anicteric. Mucous membranes of the mouth are moist. Neck supple. No JVD or thyromegaly LUNGS: Respirations even and unlabored. Lungs essentially clear to auscultation bilaterally. HEART: Irregular rate and rhythm. S1 and S2 heard. Systolic murmur noted ABDOMEN: Soft. Nondistended. Nontender. EXTREMITIES: Normal range of motion. No clubbing or cyanosis. Peripheral pulses intact. No lower extremity edema NEUROLOGIC: Awake and alert. Oriented x 3. ASSESSMENT: Acute influenza Pneumonia Non-STEMI Permanent atrial fibrillation with controlled ventricular rate, on warfarin outpatient Coronary artery disease with previous stenting in the LAD and severe stenosis in proximal RCA, left circumflex, and second OM Valvular heart disease including moderate AR, moderate to severe MR, and mild TR Ischemic cardiomyopathy, EF 47% Hypertension Hyperlipidemia Nicotine dependence PLAN: Obtain 2D echo to assess cardiac structure and function Continue IV heparin. INR 2.1 today. Continue to hold warfarin. Resume home cardiac medications Increase atorvastatin to 80 mg at night Add aspirin 81 mg daily Smoking cessation recommended. Patient to be refered to [place] quit line upon discharge. Patient will require cardiac catheterization when he is medically stable Further recommendations pending patient course Nurse practitioner note has been reviewed by physician. Signing provider agrees with the documented findings, assessment, and plan of care documented by BINDERY TECHNICIAN as a scribe. Past Medical History Past Medical History: Atrial Fibrillation, Cancer, Hyperlipidemia, Hypertension, Prostate Disorder Additional Past Medical History / Comment(s): prostate cancer, History of Any Multi-Drug Resistant Organisms: None Reported Past Surgical History: Prostate Surgery Additional Past Surgical History / Comment(s): prostatectomy Past Anesthesia/Blood Transfusion Reactions: No Reported Reaction Past Psychological History: No Psychological Hx Reported Smoking Status: Current some day smoker - Past Family History Father Family Medical History: No Reported History Medications and Allergies Home Medications Medication Instructions Recorded Confirmed Type Amlodipine Besylate/Valsartan 1 tab PO HS 10/31/23 08/15/24 History [Amlodipine Besylate/Valsartan 10-160 mg] Atorvastatin [Lipitor] 20 mg PO HS 10/31/23 08/15/24 History Metoprolol Succinate (ER) [Toprol 50 mg PO DAILY 10/31/23 08/15/24 History Xl] Nitroglycerin 0.4 mg SL Q5M PRN 10/31/23 08/15/24 History Potassium Chloride ER [K-Dur 20] 20 meq PO BID 10/31/23 08/15/24 History Warfarin [Coumadin] 5 mg PO SUMOWETHFR@209910/31/23 08/15/24 History cloNIDine HCL [Catapres] 0.2 mg PO BID 10/31/23 08/15/24 History Warfarin [Coumadin] 2.5 mg PO TUSA@209908/15/24 08/15/24 History Allergies Allergy/AdvReac Type Severity Reaction Status Date / Time ciprofloxacin [From Cipro] Allergy Unknown Verified 08/15/24 09:18 Physical Exam Vitals: Vital Signs Temp Pulse Resp BP Pulse Ox 08/15/24 12:02 68 20 142/101 96 08/15/24 09:32 77 20 148/101 97 08/15/24 08:28 74 20 139/114 96 08/15/24 04:00 77 18 144/98 96 08/15/24 03:00 77 18 128/82 96 08/15/24 02:00 70 18 130/91 96 08/15/24 01:02 71 08/15/24 00:52 87 20 08/15/24 00:50 75 18 131/96 95 08/14/24 23:05 98.3 F 72 19 118/76 93 L Intake and Output 08/14/24 08/15/24 08/15/24 22:59 06:59 14:59 Intake Total 69.5 Balance 69.5 Intake: Intake, IV Titration 69.5 Amount Heparin Sod,Pork in 0.45% 69.5 NaCl 25,000 unit In 0.45 % NaCl 1 250ml.bag @ 11. 023 UNITS/KG/HR 10 mls/hr IV .Q24H [facility] Rx#: [id number] Other: Weight 90.718 kg Results 08/14/24 23:27 08/14/24 23:27 Cardiac Enzymes 08/14/24 08/14/24 08/15/24 Range/Units 23:27 23:27 03:16 AST 81 H (17-59) U/L Troponin I 4.630 H* 4.210 H* (0.000-0.034) ng/mL 08/15/24 Range/Units 07:58 AST (17-59) U/L Troponin I 3.220 H* (0.000-0.034) ng/mL Coagulation 08/14/24 08/15/24 08/15/24 Range/Units 23:27 07:58 07:58 PT 22.9 H 21.0 H (10.0-12.5) sec APTT 27.4 93.0 H (22.0-30.0) sec CBC 08/14/24 Range/Units 23:27 WBC 5.2 (3.8-10.6) k/uL RBC 3.57 L (4.30-5.90) m/uL Hgb 12.3 L (13.0-17.5) gm/dL Hct 36.4 L (39.0-53.0) % Plt Count 105 L (150-450) k/uL Comprehensive Metabolic Panel 08/14/24 Range/Units 23:27 Sodium 138 (137-145) mmol/L Potassium 3.6 (3.5-5.1) mmol/L Chloride 107 (98-107) mmol/L Carbon Dioxide 20 L (22-30) mmol/L BUN 29 H (9-20) mg/dL Creatinine 1.27 H (0.66-1.25) mg/dL Glucose 87 (74-99) mg/dL Calcium 8.7 (8.4-10.2) mg/dL AST 81 H (17-59) U/L ALT 24 (4-49) U/L Alkaline Phosphatase 67 (38-126) U/L Total Protein 6.0 L (6.3-8.2) g/dL Albumin 3.5 (3.5-5.0) g/dL Current Medications Generic Name Dose Route Start Last Admin Trade Name Freq PRN Reason Stop Dose Admin Amlodipine Besylate 10 mg 08/15/24 21:00 Amlodipine 10 Mg Tab PO HS [facility] Aspirin 81 mg 08/16/24 09:00 Aspirin 81 Mg PO DAILY [facility] Atorvastatin Calcium 80 mg 08/15/24 21:00 Atorvastatin 80 Mg Tab PO HS [facility] Azithromycin 500 mg 08/16/24 09:00 Azithromycin 500 Mg Tab PO 08/17/24 09:01 DAILY JEREMIAH Protocol Clonidine 0.2 mg 08/15/24 09:00 08/15/24 09:33 Clonidine Hcl 0.2 Mg Tab PO 0.2 mg BID JEREMIAH Administration Heparin Sodium/Sodium Chloride 250 mls @ 10 mls/hr 08/15/24 01:15 08/15/24 09:50 25,000 unit/ Sodium Chloride IV 8.023 units/kg/hr .Q24H JEREMIAH 7.278 mls/hr Titration Protocol 11.023 UNITS/KG/HR Ceftriaxone Sodium 2 gm/ 50 mls @ 100 mls/hr 08/16/24 09:00 Sodium Chloride IVPB Q24HR JEREMIAH Protocol Metoprolol Succinate 50 mg 08/15/24 09:00 08/15/24 09:33 Metoprolol Succinate (Er) 50 Mg Tab.Er.24h PO 50 mg DAILY JEREMIAH Administration Nitroglycerin 0.4 mg 08/15/24 01:03 Nitroglycerin Sl Tabs 0.4 Mg Tab SUBLINGUAL Q5M PRN Chest Pain Oseltamivir Phosphate 30 mg 08/15/24 11:00 08/15/24 12:07 Oseltamivir 30 Mg Cap PO 08/19/24 21:01 30 mg Q12HR JEREMIAH Administration Protocol Potassium Chloride 20 meq 08/15/24 10:00 08/15/24 09:33 Potassium Chloride Er 20 Meq Tab.Er PO 20 meq BID JEREMIAH Administration Valsartan 160 mg 08/15/24 21:00 Valsartan 160 Mg Tab PO HS [facility] Intake and Output 08/14/24 08/15/24 08/15/24 22:59 06:59 14:59 Intake Total 69.5 Balance 69.5 Intake: Intake, IV Titration 69.5 Amount Heparin Sod,Pork in 0.45% 69.5 NaCl 25,000 unit In 0.45 % NaCl 1 250ml.bag @ 11. 023 UNITS/KG/HR 10 mls/hr IV .Q24H [facility] Rx#: [id number] Other: Weight 90.718 kg 08/14/24 23:27 08/14/24 23:27
--- NOTE | 2024-08-15 13:51 | P.CNPUL ---
History of Present Illness Consult date: 08/15/24 Requesting physician: Octavio Bee Reason for consult: dyspnea, chest pain, abnormal CXR/CT Chief complaint: Shortness of breath, chest pain, weakness History of present illness: This is a 79-year-old male patient with a known history of stage cancer status post prostatectomy, atrial fibrillation anticoagulated with warfarin, hypertension, hyperlipidemia, coronary disease with previous stent placement, chronic tobacco dependence who presented here to the emergency room last evening with complaints of increasing shortness of breath. His O2 saturation on room air per EMS was 88%. Chest x-ray reveals patchy mid and lower lobe airspace opacities bilaterally. Evidence of COPD. EKG reveals atrial fibrillation with nonspecific ST and T wave abnormalities. White count 5.2. Hemoglobin 12.3. Platelets 105. INR 2.1. Sodium 138. Potassium 3.6. Bicarb 20. BUN 29. Creatinine 1.27. Glucose 87. Troponins 4.63, 4.21, 3.22. proBNP 7790. Procalcitonin negative. Viral screen positive for influenza A. He has been been initiated on a heparin drip. He is seen today in consultation in the emergency department. He is currently sitting up on a stretcher. Awake and alert in no acute distress. He does have a loose productive cough of yellow sputum. Some chest tightness with coughing. He is maintaining good O2 saturations in the mid 90s on 2 L/min per nasal cannula. He has been afebrile. Hypertensive. Review of Systems REVIEW OF SYSTEMS: CONSTITUTIONAL: Denies any recent significant weight loss or weight gain. EYES: Denies change in vision. EARS, NOSE, MOUTH, THROAT: Denies headaches, denies sore throat. CARDIOVASCULAR: Positive for chest pain, no palpitations or syncopal episodes. RESPIRATORY: Positive for shortness of breath, cough, congestion no hemoptysis. GASTROINTESTINAL: Denies change in appetite, denies abdominal pain GENITOURINARY: Denies hematuria, denies infections. MUSKULOSKELETAL: Denies pain, denies swelling. INTEGUMENTARY: Denies rash, denies eczema. NEUROLOGICAL: Denies recent memory loss, no recent seizure activity. PSYCHIATRIC: Denies anxiety, denies depression. HEMATOLOGIC/LYMPHATIC: Denies anemia, denies enlarged lymph nodes. Past Medical History Past Medical History: Atrial Fibrillation, Cancer, Hyperlipidemia, Hypertension, Prostate Disorder Additional Past Medical History / Comment(s): prostate cancer, History of Any Multi-Drug Resistant Organisms: None Reported Past Surgical History: Prostate Surgery Additional Past Surgical History / Comment(s): prostatectomy Past Anesthesia/Blood Transfusion Reactions: No Reported Reaction Past Psychological History: No Psychological Hx Reported Smoking Status: Current some day smoker - Past Family History Father Family Medical History: No Reported History Medications and Allergies Home Medications Medication Instructions Recorded Confirmed Type Amlodipine Besylate/Valsartan 1 tab PO HS 10/31/23 08/15/24 History [Amlodipine Besylate/Valsartan 10-160 mg] Atorvastatin [Lipitor] 20 mg PO HS 10/31/23 08/15/24 History Metoprolol Succinate (ER) [Toprol 50 mg PO DAILY 10/31/23 08/15/24 History Xl] Nitroglycerin 0.4 mg SL Q5M PRN 10/31/23 08/15/24 History Potassium Chloride ER [K-Dur 20] 20 meq PO BID 10/31/23 08/15/24 History Warfarin [Coumadin] 5 mg PO SUMOWETHFR@209910/31/23 08/15/24 History cloNIDine HCL [Catapres] 0.2 mg PO BID 10/31/23 08/15/24 History Warfarin [Coumadin] 2.5 mg PO TUSA@209908/15/24 08/15/24 History Allergies Allergy/AdvReac Type Severity Reaction Status Date / Time ciprofloxacin [From Cipro] Allergy Unknown Verified 08/15/24 09:18 Physical Exam Vitals: Vital Signs Temp Pulse Resp BP Pulse Ox 08/15/24 12:02 68 20 142/101 96 08/15/24 09:32 77 20 148/101 97 08/15/24 08:28 74 20 139/114 96 08/15/24 04:00 77 18 144/98 96 08/15/24 03:00 77 18 128/82 96 08/15/24 02:00 70 18 130/91 96 08/15/24 01:02 71 08/15/24 00:52 87 20 08/15/24 00:50 75 18 131/96 95 08/14/24 23:05 98.3 F 72 19 118/76 93 L Intake and Output 08/14/24 08/15/24 08/15/24 22:59 06:59 14:59 Intake Total 69.5 Balance 69.5 Intake: Intake, IV Titration 69.5 Amount Heparin Sod,Pork in 0.45% 69.5 NaCl 25,000 unit In 0.45 % NaCl 1 250ml.bag @ 11. 023 UNITS/KG/HR 10 mls/hr IV .Q[facility]H [facility] Rx#: [id number] Other: Weight 90.718 kg GENERAL EXAM: Alert, 79-year-old male, sitting up on a stretcher, on 2 L nasal cannula, fairly comfortable in no apparent distress. HEAD: Normocephalic. EYES: Normal reaction of pupils, equal size. NOSE: Clear with pink turbinates. THROAT: No erythema or exudates. NECK: No masses, no JVD. CHEST: No chest wall deformity. LUNGS: Equal air entry with bilateral scattered rhonchi. CVS: S1 and S2 normal with no audible murmur, irregular rhythm. ABDOMEN: No hepatosplenomegaly, normal bowel sounds, no guarding or rigidity. SPINE: No scoliosis or deformity SKIN: No rashes CENTRAL NERVOUS SYSTEM: No focal deficits, tone is normal in all 4 extremities. EXTREMITIES: There is no peripheral edema. No clubbing, no cyanosis. Peripheral pulses are intact. Results - Laboratory Findings CBC and BMP: 08/14/24 23:27 08/14/24 23:27 PT/INR, D-dimer PT 21.0 sec (10.0-12.5) H 08/15/24 07:58 INR 2.1 (<1.2) H 08/15/24 07:58 Abnormal lab findings: Abnormal Labs 08/14/24 08/14/24 08/14/24 23:27 23:27 23:27 RBC 3.57 L Hgb 12.3 L Hct 36.4 L MCV 101.8 H Plt Count 105 L Lymphocytes # 0.5 L PT 22.9 H INR 2.3 H APTT Carbon Dioxide 20 L BUN 29 H Creatinine 1.27 H AST 81 H Troponin I Total Protein 6.0 L Urine Protein Urine Ketones Influenza Type A (PCR) 08/14/24 08/14/24 08/15/24 23:27 23:27 03:16 RBC Hgb Hct MCV Plt Count Lymphocytes # PT INR APTT Carbon Dioxide BUN Creatinine AST Troponin I 4.630 H* 4.210 H* Total Protein Urine Protein Urine Ketones Influenza Type A (PCR) Detected A 08/15/24 08/15/24 08/15/24 06:42 07:58 07:58 RBC Hgb Hct MCV Plt Count Lymphocytes # PT INR APTT 93.0 H Carbon Dioxide BUN Creatinine AST Troponin I 3.220 H* Total Protein Urine Protein Trace H Urine Ketones 1+ H Influenza Type A (PCR) 08/15/24 07:58 RBC Hgb Hct MCV Plt Count Lymphocytes # PT 21.0 H INR 2.1 H APTT Carbon Dioxide BUN Creatinine AST Troponin I Total Protein Urine Protein Urine Ketones Influenza Type A (PCR) - Diagnostic Findings Chest x-ray: image reviewed Assessment and Plan Assessment: Acute hypoxemic respiratory failure secondary to systolic congestive heart failure versus viral pneumonia. Procalcitonin is negative Non-ST segment elevation myocardial infarction. Currently on a heparin drip Acute influenza A infection, initiated on Tamiflu Acute kidney injury Coronary artery disease with previous stent placement to the LAD Ischemic cardiomyopathy with previous ejection fraction of 45% Valvular heart disease Hypertension Hyperlipidemia Chronic and ongoing tobacco dependence Suspect underlying chronic obstructive pulmonary disease Plan: The patient was seen and evaluated Chest x-ray, labs and medications reviewed Initiated on a heparin drip Warfarin on hold Add Tamiflu Continue antibiotics for now Give Lasix 40 mg IVP x 1 Chest x-ray in a.m. Educated regarding the importance of smoking cessation NicoDerm patch will be offered Echocardiogram pending May need cardiac catheterization once stable We will continue to follow and make further recommendations based on his clinical status I have personally seen and examined the patient, performed the documentation and the assessment and plan as written. Number of minutes spent on the visit: 20 Dictation was produced using [employer] dictation software. Please excuse any grammatical, word or spelling errors.
[2024-08-15 13:55] LABS: C Reactive Protein 4.4 mg/dL (<1.0)
--- NOTE | 2024-08-15 14:49 | P.HPIM ---
History of Present Illness H&P Date: 08/15/24 History of present illness; patient is 79-year-old gentleman with past medical history significant for prostate cancer, hyperlipidemia, hypertension, atrial fibrillation who presented to the ER for shortness of breath. Patient states that he was all right 1 day back when started noticing shortness of breath, shortness of breath was sudden onset, patient stated that he felt like he could not get enough air. Shortness of breath was present on rest as on exertion. There was no complaint of chest pain. There was no complaint of fever or chills. There was no complaint of orthopnea or PND. Because of this sudden onset of shortness of breath, EMS was called and when they came to patient hous e, patient oxygen was 88%. Patient was brought to the ER Initial lab work done in the ER showed WBC 5.2, hemoglobin 12.3, platelet count 105, sodium 1 3, potassium 3.6, BUN 29, creatinine 1.27, troponin 4.630 Influenza A detected Influenza B not detected RSV not detected COVID-19 not detected EKG done in the ER showed heart rate of 87, irregular rhythm, no ST segment elevation or depression seen, no T-wave inversions seen. Chest x-ray done in the ER showed patchy mid and lower lung airspace opacities concerning for pneumonia Patient admitted to internal medicine service REVIEW OF SYSTEMS: CONSTITUTIONAL: No fever, no malaise, no fatigue. HEENT: No recent visual problems or hearing problems. Denied any sore throat. CARDIOVASCULAR: As mentioned above PULMONARY: As mentioned above GASTROINTESTINAL: No diarrhea, no nausea, no vomiting, no abdominal pain. NEUROLOGICAL: No headaches, no weakness, no numbness. HEMATOLOGICAL: Denies any bleeding or petechiae. GENITOURINARY: Denies any burning micturition, frequency, or urgency. MUSCULOSKELETAL/RHEUMATOLOGICAL: Denies any joint pain, swelling, or any muscle pain. ENDOCRINE: Denies any polyuria or polydipsia. The rest of the 14-point review of systems is negative. PHYSICAL EXAMINATION: GENERAL: The patient is alert and oriented x3, not in any acute distress. Well developed, well nourished. HEENT: Pupils are round and equally reacting to light. EOMI. No scleral icterus. No conjunctival pallor. Normocephalic, atraumatic. No pharyngeal erythema. No thyromegaly. CARDIOVASCULAR: S1 and S2 present. No murmurs, rubs, or gallops. PULMONARY: Chest is clear to auscultation, no wheezing or crackles. ABDOMEN: Soft, nontender, nondistended, normoactive bowel sounds. No palpable organomegaly. MUSCULOSKELETAL: No joint swelling or deformity. EXTREMITIES: No cyanosis, clubbing, or pedal edema. NEUROLOGICAL: Gross neurological examination did not reveal any focal deficits. SKIN: No rashes. Assessment and plan NSTEMI Acute hypoxemic respiratory failure Acute influenza a infection Bacterial pneumonia Hypertension Hyperlipidemia Monitor vital signs Monitor CBC Monitor CMP Continue telemetry monitoring Trend troponin Ordered 2D echo Ordered pharmacy dose heparin Ordered Tamiflu Ordered IV Rocephin and azithromycin Ordered CRP, ESR, D-dimer Resume home meds Consult cardiology Labs and medication were reviewed.. Continue same treatment. Continue with symptomatic treatment. Resume home medication. Monitor labs and vitals. DVT and GI prophylaxis. Further recommendations as per clinical course of the ting ent Dictation was produced using [employer] dictation software. please excuse any grammatical, word or spelling errors. Past Medical History Past Medical History: Atrial Fibrillation, Cancer, Hyperlipidemia, Hypertension, Prostate Disorder Additional Past Medical History / Comment(s): prostate cancer, History of Any Multi-Drug Resistant Organisms: None Reported Past Surgical History: Prostate Surgery Additional Past Surgical History / Comment(s): prostatectomy Past Anesthesia/Blood Transfusion Reactions: No Reported Reaction Past Psychological History: No Psychological Hx Reported Smoking Status: Current some day smoker - Past Family History Father Family Medical History: No Reported History Medications and Allergies Home Medications Medication Instructions Recorded Confirmed Type Amlodipine Besylate/Valsartan 1 tab PO HS 10/31/23 08/15/24 History [Amlodipine Besylate/Valsartan 10-160 mg] Atorvastatin [Lipitor] 20 mg PO HS 10/31/23 08/15/24 History Metoprolol Succinate (ER) [Toprol 50 mg PO DAILY 10/31/23 08/15/24 History Xl] Nitroglycerin 0.4 mg SL Q5M PRN 10/31/23 08/15/24 History Potassium Chloride ER [K-Dur 20] 20 meq PO BID 10/31/23 08/15/24 History Warfarin [Coumadin] 5 mg PO SUMOWETHFR@2100 10/31/23 08/15/24 History cloNIDine HCL [Catapres] 0.2 mg PO BID 10/31/23 08/15/24 History Warfarin [Coumadin] 2.5 mg PO TUSA@2100 08/15/24 08/15/24 History Allergies Allergy/AdvReac Type Severity Reaction Status Date / Time ciprofloxacin [From Cipro] Allergy Unknown Verified 08/15/24 09:18 Physical Exam Vitals: Vital Signs Temp Pulse Resp BP Pulse Ox 08/15/24 09:32 77 20 148/101 97 08/15/24 08:28 74 20 139/114 96 08/15/24 04:00 77 18 144/98 96 08/15/24 03:00 77 18 128/82 96 08/15/24 02:00 70 18 130/91 96 08/15/24 01:02 71 08/15/24 00:52 87 20 08/15/24 00:50 75 18 131/96 95 08/14/24 23:05 98.3 F 72 19 118/76 93 L Intake and Output 08/14/24 08/15/24 08/15/24 22:59 06:59 14:59 Intake Total 69.5 Balance 69.5 Intake: Intake, IV Titration 69.5 Amount Heparin Sod,Pork in 0.45% 69.5 NaCl 25,000 unit In 0.45 % NaCl 1 250ml.bag @ 11. 023 UNITS/KG/HR 10 mls/hr IV .Q24H [facility] Rx#: [id number] Other: Weight 90.718 kg Results CBC & Chem 7: 08/14/24 23:27 08/14/24 23:27 Labs: Abnormal Lab Results - Last 24 Hours (Table) 08/14/24 08/14/24 08/14/24 Range/Units 23:27 23:27 23:27 RBC 3.57 L (4.30-5.90) m/uL Hgb 12.3 L (13.0-17.5) gm/dL Hct 36.4 L (39.0-53.0) % MCV 101.8 H (80.0-100.0) fL Plt Count 105 L (150-450) k/uL Lymphocytes # 0.5 L (1.0-4.8) k/uL PT 22.9 H (10.0-12.5) sec INR 2.3 H (<1.2) APTT (22.0-30.0) sec Carbon Dioxide 20 L (22-30) mmol/L BUN 29 H (9-20) mg/dL Creatinine 1.27 H (0.66-1.25) mg/dL AST 81 H (17-59) U/L Troponin I (0.000-0.034) ng/mL Total Protein 6.0 L (6.3-8.2) g/dL Urine Protein (Negative) Urine Ketones (Negative) Influenza Type A (PCR) (Not Detectd) 08/14/24 08/14/24 08/15/24 Range/Units 23:27 23:27 03:16 RBC (4.30-5.90) m/uL Hgb (13.0-17.5) gm/dL Hct (39.0-53.0) % MCV (80.0-100.0) fL Plt Count (150-450) k/uL Lymphocytes # (1.0-4.8) k/uL PT (10.0-12.5) sec INR (<1.2) APTT (22.0-30.0) sec Carbon Dioxide (22-30) mmol/L BUN (9-20) mg/dL Creatinine (0.66-1.25) mg/dL AST (17-59) U/L Troponin I 4.630 H* 4.210 H* (0.000-0.034) ng/mL Total Protein (6.3-8.2) g/dL Urine Protein (Negative) Urine Ketones (Negative) Influenza Type A (PCR) Detected A (Not Detectd) 08/15/24 08/15/24 08/15/24 Range/Units 06:42 07:58 07:58 RBC (4.30-5.90) m/uL Hgb (13.0-17.5) gm/dL Hct (39.0-53.0) % MCV (80.0-100.0) fL Plt Count (150-450) k/uL Lymphocytes # (1.0-4.8) k/uL PT (10.0-12.5) sec INR (<1.2) APTT 93.0 H (22.0-30.0) sec Carbon Dioxide (22-30) mmol/L BUN (9-20) mg/dL Creatinine (0.66-1.25) mg/dL AST (17-59) U/L Troponin I 3.220 H* (0.000-0.034) ng/mL Total Protein (6.3-8.2) g/dL Urine Protein Trace H (Negative) Urine Ketones 1+ H (Negative) Influenza Type A (PCR) (Not Detectd) 08/15/24 Range/Units 07:58 RBC (4.30-5.90) m/uL Hgb (13.0-17.5) gm/dL Hct (39.0-53.0) % MCV (80.0-100.0) fL Plt Count (150-450) k/uL Lymphocytes # (1.0-4.8) k/uL PT 21.0 H (10.0-12.5) sec INR 2.1 H (<1.2) APTT (22.0-30.0) sec Carbon Dioxide (22-30) mmol/L BUN (9-20) mg/dL Creatinine (0.66-1.25) mg/dL AST (17-59) U/L Troponin I (0.000-0.034) ng/mL Total Protein (6.3-8.2) g/dL Urine Protein (Negative) Urine Ketones (Negative) Influenza Type A (PCR) (Not Detectd)
[2024-08-15] MEDS: FUROSEMIDE 10 MG/ML 4 ML VIAL IV STA (15:56)
[2024-08-15] MEDS: ATORVASTATIN 80 MG TAB PO SCH (20:55)
[2024-08-16 06:39] LABS: HCT 37.1 % (39.0-53.0); HGB 12.5 gm/dL (13.0-17.5); MCH 34.1 pg (25.0-35.0); MCHC 33.8 g/dL (31.0-37.0); Macrocytosis Slight; Mean Platelet Volume 7.6; Platelet Count 118 k/uL (150-450); RBC 3.68 m/uL (4.30-5.90); RDW 14.1 % (11.5-15.5); WBC 6.1 k/uL (3.8-10.6)
[2024-08-16 06:49] LABS: INR 2.2 (<1.2); Prothrombin Time 22.6 sec (10.0-12.5)
[2024-08-16 06:50] LABS: ALT 30 U/L (4-49); AST 87 U/L (17-59); African American GFR (CKD) 73 (>60 ml/min/1.73 sqM); Albumin 3.6 g/dL (3.5-5.0); Alkaline Phosphatase 81 U/L (38-126); Anion Gap 5 mmol/L; Blood Urea Nitrogen 31 mg/dL (9-20); Calcium 8.8 mg/dL (8.4-10.2); Carbon Dioxide 30 mmol/L (22-30); Chloride 106 mmol/L (98-107); Glucose 93 mg/dL (74-99); Non-African American GFR(CKD) 63 (>60 ml/min/1.73 sqM); Potassium 3.5 mmol/L (3.5-5.1); Sodium 141 mmol/L (137-145); Total Bilirubin 0.8 mg/dL (0.2-1.3)
--- NOTE | 2024-08-16 08:37 | XR ---
EXAMINATION TYPE: XR chest 1V portable DATE OF EXAM: 08/16/2024 5:29 AM COMPARISON: 08/14/2024 CLINICAL INDICATION: Male, 79 years old with history of Hypoxemia, , FINDINGS: Heart upper limits of normal in size. Aorta and pulmonary vasculature within normal limits. Mild hype rinflation. Patchy and confluent airspace opacity left mid and lower lung persists. No pleural effusi on. IMPRESSION: Ongoing patchy infiltrate left mid and lower lung. [facility], , 08/16/2024 8:35 AM
[2024-08-16] MEDS: ASPIRIN 81 MG PO SCH (08:47)
[2024-08-16] MEDS: AZITHROMYCIN 500 MG TAB PO SCH (08:47)
[2024-08-16] MEDS ORDERED: ASPIRIN 325 MG TAB PO SCH (09:00)
[2024-08-16 10:51] LABS: LDL Cholesterol,Calculated 48.3 mg/dL (0.0-131.0)
--- NOTE | 2024-08-16 12:09 | P.PN ---
Subjective Progress Note Date: 08/16/24 History of Present Illness: The patient is a 79-year-old male with a known history of CAD, history of mitral regurgitation who presented with symptoms of progressive dyspnea and was found to have influenza A. He is feeling better this morning. He denies any chest discomfort, dizziness or palpitations. His troponin was elevated. He denies any nausea or vomiting. He is in atrial fibrillation which is chronic. Medications: IV heparin, amlodipine 10 mg daily, aspirin, Lipitor 80 mg daily, Zithromax, Rocephin, clonidine 0.2 mg twice a day, metoprolol succinate 50 mg daily, Tamiflu, valsartan 160 mg daily Physical Examination: 79-year-old male, alert oriented no apparent distress,Blood pressure 133/90, Heart rate 70 Head: Normocephalic. Eyes: Sclerae nonicteric. Neck: Good carotid upstroke, no bruit, no jugular venous distention. Lungs: Bilateral crackles Heart: Irregular rate and rhythm, S1-S2, no S3, no rub. Holosystolic murmur at the apex. Abdomen: Soft nontender, positive bowel sounds no organomegaly. Extremities: No edema, intact distal pulses. Labs: Hemoglobin 12.5, INR 2.2, BUN 31, creatinine 1.1, NT proBNP 5530. Impression: 1. Influenza A infection 2. Non-STEMI probably exacerbated by the infection 3. History of CAD with ectatic vessel and history of mitral regurgitation 4. Chronic persistent atrial fibrillation 5. History of mitral regurgitation 6. Hypertension 8. Hyperlipidemia Plan: 1. Continue anticoagulation and stop IV heparin 2. Obtain an echocardiogram with Doppler 3. Follow renal functions 4. Once infection stabilized consider repeat coronary angiography as an outpatient 5. Depending on his progress further recommendations will be made Objective - Vital Signs Vital signs: Vital Signs Temp 98.3 F 08/16/24 08:51 Pulse 64 08/16/24 12:01 Resp 23 08/16/24 12:01 BP 133/95 08/16/24 12:01 Pulse Ox 98 08/16/24 12:01 FiO2 Intake & Output 08/15/24 08/16/24 08/16/24 18:59 06:59 18:59 Intake Total 69.5 111.717 43.304 Balance 69.5 111.717 43.304 Intake: Intake, IV Titration 69.5 111.717 43.304 Amount Heparin Sod,Pork in 0.45% 69.5 111.717 43.304 NaCl 25,000 unit In 0.45 % NaCl 1 250ml.bag @ 11. 023 UNITS/KG/HR 10 mls/hr IV .Q24H [facility] Rx#: [id number] - Labs CBC & Chem 7: 08/16/24 05:39 08/16/24 05:39 Labs: Abnormal Lab Results - Last 24 Hours (Table) 08/15/24 08/15/24 08/16/24 Range/Units 13:16 15:39 05:39 RBC (4.30-5.90) m/uL Hgb (13.0-17.5) gm/dL Hct (39.0-53.0) % MCV (80.0-100.0) fL Plt Count (150-450) k/uL PT (10.0-12.5) sec INR (<1.2) APTT 54.8 H (22.0-30.0) sec BUN 31 H (9-20) mg/dL AST 87 H (17-59) U/L C-Reactive Protein 4.4 H (<1.0) mg/dL Total Protein 6.0 L (6.3-8.2) g/dL 08/16/24 08/16/24 08/16/24 Range/Units 05:39 05:39 05:39 RBC 3.68 L (4.30-5.90) m/uL Hgb 12.5 L (13.0-17.5) gm/dL Hct 37.1 L (39.0-53.0) % MCV 101.0 H (80.0-100.0) fL Plt Count 118 L (150-450) k/uL PT 22.6 H (10.0-12.5) sec INR 2.2 H (<1.2) APTT 47.2 H (22.0-30.0) sec BUN (9-20) mg/dL AST (17-59) U/L C-Reactive Protein (<1.0) mg/dL Total Protein (6.3-8.2) g/dL
--- NOTE | 2024-08-16 12:18 | CA ---
Transthoracic Echo Report Name: Tony Dolan Age: 79 Gender: M : 1945 Exam Date: 08/16/2024 08:22 Exam Location: [facility] Ht (in): 70 Wt (lb): 200 Ordering Physician: Sherice Garcia Attending/Referring Phys: [id number], Radha Pilot Manager Margarita Esteves RDCS Procedure CPT: Indications: NSTEMI, LV function, + flu Cardiac Hx: Technical Quality: Good Contrast 1: Total Dose (mL): Contrast 2: Total Dose (mL): MEASUREMENTS (Male / Female) Normal Values 2D ECHO LV Diastolic Diameter PLAX 5.8 cm 4.2 - 5.9 / 3.9 - 5.3 cm LV Systolic Diameter PLAX 3.5 cm IVS Diastolic Thickness 1.5 cm 0.6 - 1.0 / 0.6 - 0.9 cm LVPW Diastolic Thickness 1.5 cm 0.6 - 1.0 / 0.6 - 0.9 cm LV Relative Wall Thickness 0.5 RV Internal Dim ED PLAX 3.5 cm LA Systolic Diameter LX 5.1 cm 3.0 - 4.0 / 2.7 - 3.8 cm LV Diastolic Volume MOD 4C 102.8 cm??? LV Systolic Volume MOD 4C 59.5 cm??? LV Ejection Fraction MOD 4C 42.1 % LV Cardiac Index MOD 4C 1658.8 cm???/min???m??? LV Diastolic Length 4C 7.8 cm LV Systolic Length 4C 6.4 cm LV Diastolic Volume MOD 2C 107.7 cm??? LV Systolic Volume MOD 2C 66.9 cm??? LV Ejection Fraction MOD 2C 37.9 % LV Cardiac Index MOD 2C 1566.7 cm???/min???m??? LV Diastolic Length 2C 7.5 cm LV Systolic Length 2C 6.9 cm LA Volume 173.0 cm??? 18 - 58 / 22 - 52 cm??? LA Volume Index 81.0 cm???/m??? 16 - 28 cm???/m??? M-MODE Aortic Root Diameter MM 4.6 cm AV Cusp Separation MM 2.6 cm DOPPLER AV Peak Velocity 156.0 cm/s AV Peak Gradient 9.7 mmHg AV Mean Velocity 111.1 cm/s AV Mean Gradient 5.9 mmHg AV Velocity Time Integral 30.2 cm AI Peak Velocity 485.5 cm/s AI Peak Gradient 94.3 mmHg AI Pressure Half Time 859.9 ms LVOT Peak Velocity 86.4 cm/s LVOT Peak Gradient 3.0 mmHg LVOT Velocity Time Integral 16.2 cm MV Area PHT 4.0 cm??? MV Deceleration Time 203.2 ms TR Peak Velocity 283.9 cm/s TR Peak Gradient 32.2 mmHg Right Ventricular Systolic Press 35.5 mmHg FINDINGS Left Ventricle Left ventricular ejection fraction is estimated at 40-45%. Left ventricular cavity size normal. Moderate concentric left ventricular hypertrophy. Right Ventricle Mild right ventricular dilatation. Mild pulmonary hypertension. Right Atrium Severe right atrial dilatation. No right atrial thrombus or mass seen. Left Atrium Moderately increased left atrial diameter. Severely increased left atrial volume. Moderately increased left atrial area. No left atrial thrombus or mass present. Mitral Valve Mitral valve thickened. Mild mitral annular calcification. Moderate mitral regurgitation. Aortic Valve Trileaflet aortic valve. Mild aortic regurgitation. Thickened aortic valve without stenosis. Tricuspid Valve Structurally normal tricuspid valve. Mild tricuspid regurgitation. Pulmonic Valve Pulmonic valve not well visualized. Pericardium No pericardial effusion. Aorta Moderate aortic dilatation at the level of the sinuses of valsalva 46 mm CONCLUSIONS Impaired LV function with EF between 40 to 45% Severe biatrial enlargement Moderate mitral regurgitation with a central jet Mild aortic insufficiency Previewed by: Dr. Tolu Ye MD (Electronically Signed) Final Date: 16 August 2024 12:17
--- NOTE | 2024-08-16 13:58 | P.PN ---
Subjective Progress Note Date: 08/16/24 patient is 79-year-old gentleman with past medical history significant for prostate cancer, hyperlipidemia, hypertension, atrial fibrillation who presented to the ER for shortness of breath. Patient states that he was all right 1 day back when started noticing shortness of breath, shortness of breath was sudden onset, patient stated that he felt like he could not get enough air. Shortness of breath was present on rest as on exertion. There was no complaint of chest pain. There was no complaint of fever or chills. There was no complaint of orthopnea or PND. Because of this sudden onset of shortness of breath, EMS was called and when they came to patient house, patient oxygen was 88%. Patient was brought to the ER Initial lab work done in the ER showed WBC 5.2, hemoglobin 12.3, platelet count 105, sodium 1 3, potassium 3.6, BUN 29, creatinine 1.27, troponin 4.630 Influenza A detected Influenza B not detected RSV not detected COVID-19 not detected EKG done in the ER showed heart rate of 87, irregular rhythm, no ST segment elevation or depression seen, no T-wave inversions seen. Chest x-ray done in the ER showed patchy mid and lower lung airspace opacities concerning for pneumonia Patient admitted to internal medicine service 08/16. Patient seen and examined. Blood work done showed WBC 6.1, hemoglobin 5, sodium 141, potassium 3.5, BUN 31, creatinine 1.11 State he feels much better. Breathing is improved. Currently on 6 L of oxygen REVIEW OF SYSTEMS: CONSTITUTIONAL: No fever, no malaise,. CARDIOVASCULAR: No chest pain, no palpitations, no syncope. PULMONARY: No shortness of breath, no cough, GASTROINTESTINAL: No diarrhea, no nausea, no vomiting, no abdominal pain. NEUROLOGICAL: No headaches, no weakness, PHYSICAL EXAMINATION: GENERAL: The patient is alert and oriented x3, not in any acute distress. Well developed, well nourished. HEENT: Pupils are round and equally reacting to light. EOMI. No scleral icterus. No conjunctival pallor. Normocephalic, atraumatic. No pharyngeal erythema. No thyromegaly. CARDIOVASCULAR: S1 and S2 present. No murmurs, rubs, or gallops. PULMONARY: Chest is clear to auscultation, no wheezing or crackles. ABDOMEN: Soft, nontender, nondistended, normoactive bowel sounds. No palpable organomegaly. MUSCULOSKELETAL: No joint swelling or deformity. EXTREMITIES: No cyanosis, clubbing, or pedal edema. NEUROLOGICAL: Gross neurological examination did not reveal any focal deficits. SKIN: No rashes. Assessment and plan NSTEMI Acute hypoxemic respiratory failure Acute influenza a infection Bacterial pneumonia Hypertension Hyperlipidemia Monitor vital signs Monitor CBC Monitor CMP Continue telemetry monitoring Trend troponin Ordered 2D echo Continue pharmacy dose Coumadin Continue Tamiflu Continue breathing treatments Cardiology following Pulmonology following Labs and medication were reviewed.. Continue same treatment. Continue with symptomatic treatment. Resume home medication. Monitor labs and vitals. DVT and GI prophylaxis. Further recommendations as per clinical course of the patient Dictation was produced using [employer] dictation software. please excuse any grammatical, word or spelling errors. Objective - Vital Signs Vital signs: Vital Signs Temp 98.3 F 08/16/24 08:51 Pulse 64 08/16/24 12:01 Resp 23 08/16/24 12:01 BP 133/95 08/16/24 12:01 Pulse Ox 98 08/16/24 12:01 FiO2 Intake & Output 08/15/24 08/16/24 08/16/24 18:59 06:59 18:59 Intake Total 69.5 111.717 43.304 Balance 69.5 111.717 43.304 Intake: Intake, IV Titration 69.5 111.717 43.304 Amount Heparin Sod,Pork in 0.45% 69.5 111.717 43.304 NaCl 25,000 unit In 0.45 % NaCl 1 250ml.bag @ 11. 023 UNITS/KG/HR 10 mls/hr IV .Q24H [facility] Rx#: [id number] - Labs CBC & Chem 7: 08/16/24 05:39 08/16/24 05:39 Labs: Abnormal Lab Results - Last 24 Hours (Table) 08/15/24 08/15/24 08/16/24 Range/Units 13:16 15:39 05:39 RBC (4.30-5.90) m/uL Hgb (13.0-17.5) gm/dL Hct (39.0-53.0) % MCV (80.0-100.0) fL Plt Count (150-450) k/uL PT (10.0-12.5) sec INR (<1.2) APTT 54.8 H (22.0-30.0) sec BUN 31 H (9-20) mg/dL AST 87 H (17-59) U/L C-Reactive Protein 4.4 H (<1.0) mg/dL Total Protein 6.0 L (6.3-8.2) g/dL 08/16/24 08/16/24 08/16/24 Range/Units 05:39 05:39 05:39 RBC 3.68 L (4.30-5.90) m/uL Hgb 12.5 L (13.0-17.5) gm/dL Hct 37.1 L (39.0-53.0) % MCV 101.0 H (80.0-100.0) fL Plt Count 118 L (150-450) k/uL PT 22.6 H (10.0-12.5) sec INR 2.2 H (<1.2) APTT 47.2 H (22.0-30.0) sec BUN (9-20) mg/dL AST (17-59) U/L C-Reactive Protein (<1.0) mg/dL Total Protein (6.3-8.2) g/dL
--- NOTE | 2024-08-16 14:57 | P.PN ---
Subjective Progress Note Date: 08/16/24 This is a 79-year-old male patient with a known history of stage cancer status post prostatectomy, atrial fibrillation anticoagulated with warfarin, hypertension, hyperlipidemia, coronary disease with previous stent placement, chronic tobacco dependence who presented here to the emergency room last evening with complaints of increasing shortness of breath. His O2 saturation on room air per EMS was 88%. Chest x-ray reveals patchy mid and lower lobe airspace opacities bilaterally. Evidence of COPD. EKG reveals atrial fibrillation with nonspecific ST and T wave abnormalities. White count 5.2. Hemoglobin 12.3. Platelets 105. INR 2.1. Sodium 138. Potassium 3.6. Bicarb 20. BUN 29. Creatinine 1.27. Glucose 87. Troponins 4.63, 4.21, 3.22. proBNP 7790. Procalcitonin negative. Viral screen positive for influenza A. He has been been initiated on a heparin drip. He is seen today in consultation in the emergency department. He is currently sitting up on a stretcher. Awake and alert in no acute distress. He does have a loose productive cough of yellow sputum. Some chest tightness with coughing. He is maintaining good O2 saturations in the mid 90s on 2 L/min per nasal cannula. He has been afebrile. Hypertensive. The patient is seen today August 16, 2024 in follow-up in the emergency department. He is currently resting fairly comfortably in bed. Maintaining O2 saturations in the 90s on 6 L/min per nasal cannula. Still with some scattered rhonchi. He remains on a heparin drip. His procalcitonin was negative at 0.08. Antibiotics will be discontinued. He is continued on Tamiflu. White count 6.1. Hemoglobin 12.5. Platelets 118. Sodium 141. Potassium 3.5. Bicarb 30. BUN 31. Creatinine 1.11. Glucose 63. Chest x-ray continues to show patchy infiltrate in the left mid and lower lung. Echocardiogram revealed mildly impaired left ventricular systolic function with an ejection fraction of 40 to 45%. Moderate mitral regurgitation. Objective - Vital Signs Vital signs: Vital Signs Temp 98.3 F 08/16/24 08:51 Pulse 64 08/16/24 12:01 Resp 23 08/16/24 12:01 BP 133/95 08/16/24 12:01 Pulse Ox 98 08/16/24 12:01 FiO2 Intake & Output 08/15/24 08/16/24 08/16/24 18:59 06:59 18:59 Intake Total 69.5 111.717 43.304 Balance 69.5 111.717 43.304 Intake: Intake, IV Titration 69.5 111.717 43.304 Amount Heparin Sod,Pork in 0.45% 69.5 111.717 43.304 NaCl 25,000 unit In 0.45 % NaCl 1 250ml.bag @ 11. 023 UNITS/KG/HR 10 mls/hr IV .Q24H [facility] Rx#: [id number] - Exam GENERAL EXAM: Alert, 79-year-old male, on 6 L nasal cannula, comfortable in no apparent distress. HEAD: Normocephalic. EYES: Normal reaction of pupils, equal size. NOSE: Clear with pink turbinates. THROAT: No erythema or exudates. NECK: No masses, no JVD. CHEST: No chest wall deformity. LUNGS: Equal air entry with bilateral scattered rhonchi. CVS: S1 and S2 normal with no audible murmur, irregular rhythm. ABDOMEN: No hepatosplenomegaly, normal bowel sounds, no guarding or rigidity. SPINE: No scoliosis or deformity SKIN: No rashes CENTRAL NERVOUS SYSTEM: No focal deficits, tone is normal in all 4 extremities. EXTREMITIES: There is no peripheral edema. No clubbing, no cyanosis. Peripheral pulses are intact. - Labs CBC & Chem 7: 08/16/24 05:39 08/16/24 05:39 Labs: Abnormal Lab Results - Last 24 Hours (Table) 08/15/24 08/16/24 08/16/24 Range/Units 15:39 05:39 05:39 RBC (4.30-5.90) m/uL Hgb (13.0-17.5) gm/dL Hct (39.0-53.0) % MCV (80.0-100.0) fL Plt Count (150-450) k/uL PT 22.6 H (10.0-12.5) sec INR 2.2 H (<1.2) APTT 54.8 H (22.0-30.0) sec BUN 31 H (9-20) mg/dL AST 87 H (17-59) U/L Total Protein 6.0 L (6.3-8.2) g/dL 08/16/24 08/16/24 Range/Units 05:39 05:39 RBC 3.68 L (4.30-5.90) m/uL Hgb 12.5 L (13.0-17.5) gm/dL Hct 37.1 L (39.0-53.0) % MCV 101.0 H (80.0-100.0) fL Plt Count 118 L (150-450) k/uL PT (10.0-12.5) sec INR (<1.2) APTT 47.2 H (22.0-30.0) sec BUN (9-20) mg/dL AST (17-59) U/L Total Protein (6.3-8.2) g/dL Assessment and Plan Assessment: Acute hypoxemic respiratory failure secondary to systolic congestive heart failure versus viral pneumonia. Procalcitonin is negative Non-ST segment elevation myocardial infarction. Currently on a heparin drip Acute influenza A infection, initiated on Tamiflu Acute kidney injury Coronary artery disease with previous stent placement to the LAD Ischemic cardiomyopathy with previous ejection fraction of 45% Valvular heart disease Hypertension Hyperlipidemia Chronic and ongoing tobacco dependence Suspect underlying chronic obstructive pulmonary disease Plan: The patient was seen and evaluated Chest x-ray, labs and medications reviewed Echocardiogram reviewed Currently on 6 L high flow nasal cannula Continue bronchodilators, steroids, Tamiflu Procalcitonin negative Antibiotics discontinued We will continue to follow I have personally seen and examined the patient, performed the documentation and the assessment and plan as written. Number of minutes spent on the visit: 10 Dictation was produced using [employer] dictation software. Please excuse any grammatical, word or spelling errors.
[2024-08-16] MEDS: WARFARIN 5 MG TAB PO ONE (17:56)
[2024-08-16] MEDS: VALSARTAN 160 MG TAB PO SCH (21:11)
[2024-08-16] MEDS: cloNIDine HCL 0.1 MG TAB PO SCH (21:11)
[2024-08-17 08:40] LABS: African American GFR (CKD) 88 (>60 ml/min/1.73 sqM); Anion Gap 6 mmol/L; Blood Urea Nitrogen 24 mg/dL (9-20); Calcium 8.7 mg/dL (8.4-10.2); Carbon Dioxide 30 mmol/L (22-30); Chloride 104 mmol/L (98-107); Glucose 87 mg/dL (74-99); Non-African American GFR(CKD) 76 (>60 ml/min/1.73 sqM); Potassium 3.2 mmol/L (3.5-5.1); Sodium 140 mmol/L (137-145)
[2024-08-17 08:45] LABS: INR 2.1 (<1.2); Partial Thromboplastin Time 31.8 sec (22.0-30.0); Prothrombin Time 21.3 sec (10.0-12.5)
--- NOTE | 2024-08-17 11:59 | P.PN ---
Subjective Progress Note Date: 08/17/24 History of Present Illness: The patient is a 79-year-old male with a known history of CAD, history of mitral regurgitation who presented with symptoms of progressive dyspnea and was found to have influenza A. He is feeling better this morning. He denies any chest discomfort, dizziness or palpitations. His troponin was elevated. He denies any nausea or vomiting. He is in atrial fibrillation which is chronic. August 17: The patient is feeling better today, his breathing is better. He denies any chest discomfort, dizziness or palpitations. His cough is better. He denies any nausea or vomiting. Hemodynamically he is stable. He underwent an echocardiogram that showed moderate mitral regurgitation. His ejection fraction is 40 to 45%. Medications: Coumadin, amlodipine 10 mg daily, aspirin, Lipitor 80 mg daily, Zithromax, Rocephin, clonidine 0.1 mg twice a day, metoprolol succinate 50 mg daily, Tamiflu, valsartan 160 mg twice daily Physical Examination: 79-year-old male, alert oriented no apparent distress,Blood pressure 130/88, Heart rate 80 Head: Normocephalic. Eyes: Sclerae nonicteric. Neck: Good carotid upstroke, no bruit, no jugular venous distention. Lungs: Clear to auscultation Heart: Irregular rate and rhythm, S1-S2, no S3, no rub. Holosystolic murmur at the apex. Abdomen: Soft nontender, positive bowel sounds no organomegaly. Extremities: No edema, intact distal pulses. Labs: INR 2.1, potassium 3.2, BUN 24, creatinine 0.96 Impression: 1. Influenza A infection 2. Non-STEMI probably exacerbated by the infection 3. History of CAD with ectatic vessel and history of moderate mitral regurgitation 4. Chronic persistent atrial fibrillation 5. History of mitral regurgitation 6. Hypertension 8. Hyperlipidemia Plan: 1. Continue present therapy 2. Increase physical activity 3. Follow INR 4. Consider repeating coronary angiography as outpatient once infectious process resolved 5. Depending on his progress further recommendations will be made Objective - Vital Signs Vital signs: Vital Signs Temp 98.4 F 08/17/24 04:00 Pulse 80 08/17/24 04:00 Resp 18 08/17/24 04:00 BP 130/88 08/17/24 04:00 Pulse Ox 96 08/17/24 04:00 FiO2 Intake & Output 12/30/24 12/31/24 12/31/24 18:59 06:59 18:59 Intake Total 43.304 118 Output Total 200 Balance 43.304 -82 Weight 84 kg Intake: Intake, IV Titration 43.304 Amount Heparin Sod,Pork in 0.45% 43.304 NaCl 25,000 unit In 0.45 % NaCl 1 250ml.bag @ 11. 023 UNITS/KG/HR 10 mls/hr IV .Q24H [facility] Rx#: [id number] Oral 118 Output: Urine 200 Other: Voiding Method Toilet # Voids 1 - Labs CBC & Chem 7: 08/16/24 05:39 08/17/24 07:44 Labs: Abnormal Lab Results - Last 24 Hours (Table) 08/17/24 08/17/24 Range/Units 07:44 07:44 PT 21.3 H (10.0-12.5) sec INR 2.1 H (<1.2) APTT 31.8 H (22.0-30.0) sec Potassium 3.2 L (3.5-5.1) mmol/L BUN 24 H (9-20) mg/dL
--- NOTE | 2024-08-17 15:08 | P.PN ---
Subjective Progress Note Date: 08/17/24 patient is 79-year-old gentleman with past medical history significant for prostate cancer, hyperlipidemia, hypertension, atrial fibrillation who presented to the ER for shortness of breath. Patient states that he was all right 1 day back when started noticing shortness of breath, shortness of breath was sudden onset, patient stated that he felt like he could not get enough air. Shortness of breath was present on rest as on exertion. There was no complaint of chest pain. There was no complaint of fever or chills. There was no complaint of orthopnea or PND. Because of this sudden onset of shortness of breath, EMS was called and when they came to patient house, patient oxygen was 88%. Patient was brought to the ER Initial lab work done in the ER showed WBC 5.2, hemoglobin 12.3, platelet count 105, sodium 1 3, potassium 3.6, BUN 29, creatinine 1.27, troponin 4.630 Influenza A detected Influenza B not detected RSV not detected COVID-19 not detected EKG done in the ER showed heart rate of 87, irregular rhythm, no ST segment elevation or depression seen, no T-wave inversions seen. Chest x-ray done in the ER showed patchy mid and lower lung airspace opacities concerning for pneumonia Patient admitted to internal medicine service 08/16. Patient seen and examined. Blood work done showed WBC 6.1, hemoglobin 5, sodium 141, potassium 3.5, BUN 31, creatinine 1.11 State he feels much better. Breathing is improved. Currently on 6 L of oxygen 08/17. Patient seen and examined. Blood work done showed sodium 140, potassium 3.2, BUN 24, creatinine 0.96. Continues to be on 6 L of oxygen. Short of breath on minimal exertion REVIEW OF SYSTEMS: CONSTITUTIONAL: No fever, no malaise,. CARDIOVASCULAR: No chest pain, no palpitations, no syncope. PULMONARY: No shortness of breath, no cough, GASTROINTESTINAL: No diarrhea, no nausea, no vomiting, no abdominal pain. NEUROLOGICAL: No headaches, no weakness, PHYSICAL EXAMINATION: GENERAL: The patient is alert and oriented x3, not in any acute distress. Well developed, well nourished. HEENT: Pupils are round and equally reacting to light. EOMI. No scleral icterus. No conjunctival pallor. Normocephalic, atraumatic. No pharyngeal erythema. No thyromegaly. CARDIOVASCULAR: S1 and S2 present. No murmurs, rubs, or gallops. PULMONARY: Coarse breath sound bilaterally, no wheezing or crackles. ABDOMEN: Soft, nontender, nondistended, normoactive bowel sounds. No palpable organomegaly. MUSCULOSKELETAL: No joint swelling or deformity. EXTREMITIES: No cyanosis, clubbing, or pedal edema. NEUROLOGICAL: Gross neurological examination did not reveal any focal deficits. SKIN: No rashes. Assessment and plan NSTEMI Acute hypoxemic respiratory failure Acute influenza a infection Bacterial pneumonia Hypertension Hyperlipidemia Monitor vital signs Monitor CBC Monitor CMP Continue telemetry monitoring Trend troponin Ordered 2D echo Continue pharmacy dose Coumadin Continue Tamiflu Continue breathing treatments Cardiology following Pulmonology following Labs and medication were reviewed.. Continue same treatment. Continue with symptomatic treatment. Resume home medication. Monitor labs and vitals. DVT and GI prophylaxis. Further recommendations as per clinical course of the patient Dictation was produced using [employer] dictation software. please excuse any grammatical, word or spelling errors. Objective - Vital Signs Vital signs: Vital Signs Temp 98.4 F 08/17/24 04:00 Pulse 80 08/17/24 04:00 Resp 18 08/17/24 04:00 BP 130/88 08/17/24 04:00 Pulse Ox 96 08/17/24 04:00 FiO2 Intake & Output 08/16/24 08/17/24 08/17/24 18:59 06:59 18:59 Intake Total 43.304 118 Output Total 200 Balance 43.304 -82 Weight 84 kg Intake: Intake, IV Titration 43.304 Amount Heparin Sod,Pork in 0.45% 43.304 NaCl 25,000 unit In 0.45 % NaCl 1 250ml.bag @ 11. 023 UNITS/KG/HR 10 mls/hr IV .Q24H [facility] Rx#: [id number] Oral 118 Output: Urine 200 Other: Voiding Method Toilet # Voids 1 - Labs CBC & Chem 7: 08/16/24 05:39 08/17/24 07:44 Labs: Abnormal Lab Results - Last 24 Hours (Table) 08/17/24 08/17/24 Range/Units 07:44 07:44 PT 21.3 H (10.0-12.5) sec INR 2.1 H (<1.2) APTT 31.8 H (22.0-30.0) sec Potassium 3.2 L (3.5-5.1) mmol/L BUN 24 H (9-20) mg/dL
--- NOTE | 2024-08-17 15:58 | P.PN ---
Subjective Progress Note Date: 08/17/24 Principal diagnosis: Influenza. This is a 79-year-old male patient with a known history of stage cancer status post prostatectomy, atrial fibrillation anticoagulated with warfarin, hypertension, hyperlipidemia, coronary disease with previous stent placement, chronic tobacco dependence who presented here to the emergency room last evening with complaints of increasing shortness of breath. His O2 saturation on room air per EMS was 88%. Chest x-ray reveals patchy mid and lower lobe airspace opacities bilaterally. Evidence of COPD. EKG reveals atrial fibrillation with nonspecific ST and T wave abnormalities. White count 5.2. Hemoglobin 12.3. Platelets 105. INR 2.1. Sodium 138. Potassium 3.6. Bicarb 20. BUN 29. Creatinine 1.27. Glucose 87. Troponins 4.63, 4.21, 3.22. proBNP 7790. Procalcitonin negative. Viral screen positive for influenza A. He has been been initiated on a heparin drip. He is seen today in consultation in the emergency department. He is currently sitting up on a stretcher. Awake and alert in no acute distress. He does have a loose productive cough of yellow sputum. Some chest tightness with coughing. He is maintaining good O2 saturations in the mid 90s on 2 L/min per nasal cannula. He has been afebrile. Hypertensive. The patient is seen today August 16, 2024 in follow-up in the emergency department. He is currently resting fairly comfortably in bed. Maintaining O2 saturations in the 90s on 6 L/min per nasal cannula. Still with some scattered rhonchi. He remains on a heparin drip. His procalcitonin was negative at 0.08. Antibiotics will be discontinued. He is continued on Tamiflu. White count 6.1. Hemoglobin 12.5. Platelets 118. Sodium 141. Potassium 3.5. Bicarb 30. BUN 31. Creatinine 1.11. Glucose 63. Chest x-ray continues to show patchy infiltrate in the left mid and lower lung. Echocardiogram revealed mildly impaired left ventricular systolic function with an ejection fraction of 40 to 45%. Moderate mitral regurgitation. Progress note dated August 17, 2024. 79-year-old male who is seen today in room 379. He is sitting in a chair next to the hospital bed. He is on 2 L of oxygen. The patient is feeling much better. He has a big smile on his face. Current laboratory data includes a PT of 21.3, INR 2.1, PTT of 31.8. Sodium 140, potassium 3.2, chlorides 104, CO2 30, BUN 24, creatinine 0.96. Glucose is 87. Objective - Vital Signs Vital signs: Vital Signs Temp 98.4 F 08/17/24 04:00 Pulse 80 08/17/24 04:00 Resp 18 08/17/24 04:00 BP 130/88 08/17/24 04:00 Pulse Ox 96 08/17/24 04:00 FiO2 Intake & Output 08/16/24 08/17/24 08/17/24 18:59 06:59 18:59 Intake Total 43.304 236 Output Total 200 Balance 43.304 36 Weight 84 kg Intake: Intake, IV Titration 43.304 Amount Heparin Sod,Pork in 0.45% 43.304 NaCl 25,000 unit In 0.45 % NaCl 1 250ml.bag @ 11. 023 UNITS/KG/HR 10 mls/hr IV .Q24H [facility] Rx#: [id number] Oral 236 Output: Urine 200 Other: Voiding Method Toilet # Voids 1 - Exam No acute distress, oriented 3. HEENT examination is grossly unremarkable. Mucous membranes are moist. No oral lesions. Neck supple. Full range of motion. No adenopathy thyromegaly or neck vein distention. Cardiovascular examination reveals an irregular rhythm and rate. S1-S2 normal. No S3 or S4. No discernible murmur noted. Lungs reveal diffuse bilateral rhonchi. No wheezes. No crackles. Breath sounds are equal bilaterally. Abdomen soft bowel sounds are heard. No masses or tenderness. Extremities are intact. No cyanosis clubbing or edema. Skin is without rash or lesion. Neurologic examination is brief but nonfocal. - Labs CBC & Chem 7: 08/16/24 05:39 08/17/24 07:44 Labs: Abnormal Lab Results - Last 24 Hours (Table) 08/17/24 08/17/24 Range/Units 07:44 07:44 PT 21.3 H (10.0-12.5) sec INR 2.1 H (<1.2) APTT 31.8 H (22.0-30.0) sec Potassium 3.2 L (3.5-5.1) mmol/L BUN 24 H (9-20) mg/dL Assessment and Plan Assessment: Acute hypoxemic respiratory failure secondary to systolic congestive heart failure versus viral pneumonia. Non-ST segment elevation myocardial infarction. Acute influenza A infection, initiated on Tamiflu. Acute kidney injury. Coronary artery disease with previous stent placement to the LAD. Ischemic cardiomyopathy with previous ejection fraction of 45%. Valvular heart disease. Hypertension. Hyperlipidemia. Chronic and ongoing tobacco dependence. Suspect underlying chronic obstructive pulmonary disease. Plan: Plan dated August 17, 2024. The patient is seen today in room 379. He is sitting in a chair next to his hospital bed. He is on 2 L of oxygen. The patient is feeling much better than he did yesterday when we saw him. We actually saw him 2 days ago in the emergency department. Labs, x-rays, medications are reviewed. We will continue to follow the patient, make recommendations along the way. The patient is on Tamiflu for his influenza A infection. Prognosis is guarded. Time with Patient: Less than 30
[2024-08-17] MEDS: WARFARIN 2.5 MG TAB PO ONE (18:44)
[2024-08-18 08:23] LABS: INR 2.1 (<1.2); Prothrombin Time 21.1 sec (10.0-12.5)
[2024-08-18 08:31] LABS: African American GFR (CKD) 77 (>60 ml/min/1.73 sqM); Anion Gap 9 mmol/L; Blood Urea Nitrogen 28 mg/dL (9-20); Calcium 9.3 mg/dL (8.4-10.2); Carbon Dioxide 26 mmol/L (22-30); Chloride 106 mmol/L (98-107); Glucose 92 mg/dL (74-99); Non-African American GFR(CKD) 67 (>60 ml/min/1.73 sqM); Potassium 3.9 mmol/L (3.5-5.1); Sodium 141 mmol/L (137-145)
--- NOTE | 2024-08-18 14:02 | P.PN ---
Subjective Progress Note Date: 08/18/24 patient is 79-year-old gentleman with past medical history significant for prostate cancer, hyperlipidemia, hypertension, atrial fibrillation who presented to the ER for shortness of breath. Patient states that he was all right 1 day back when started noticing shortness of breath, shortness of breath was sudden onset, patient stated that he felt like he could not get enough air. Shortness of breath was present on rest as on exertion. There was no complaint of chest pain. There was no complaint of fever or chills. There was no complaint of orthopnea or PND. Because of this sudden onset of shortness of breath, EMS was called and when they came to patient house, patient oxygen was 88%. Patient was brought to the ER Initial lab work done in the ER showed WBC 5.2, hemoglobin 12.3, platelet count 105, sodium 1 3, potassium 3.6, BUN 29, creatinine 1.27, troponin 4.630 Influenza A detected Influenza B not detected RSV not detected COVID-19 not detected EKG done in the ER showed heart rate of 87, irregular rhythm, no ST segment elevation or depression seen, no T-wave inversions seen. Chest x-ray done in the ER showed patchy mid and lower lung airspace opacities concerning for pneumonia Patient admitted to internal medicine service 08/16. Patient seen and examined. Blood work done showed WBC 6.1, hemoglobin 5, sodium 141, potassium 3.5, BUN 31, creatinine 1.11 State he feels much better. Breathing is improved. Currently on 6 L of oxygen 08/17. Patient seen and examined. Blood work done showed sodium 140, potassium 3.2, BUN 24, creatinine 0.96. Continues to be on 6 L of oxygen. Short of breath on minimal exertion 08/18. Patient seen and examined. Breathing is improved, currently not requiring any supplemental oxygen REVIEW OF SYSTEMS: CONSTITUTIONAL: No fever, no malaise,. CARDIOVASCULAR: No chest pain, no palpitations, no syncope. PULMONARY: No shortness of breath, no cough, GASTROINTESTINAL: No diarrhea, no nausea, no vomiting, no abdominal pain. NEUROLOGICAL: No headaches, no weakness, PHYSICAL EXAMINATION: GENERAL: The patient is alert and oriented x3, not in any acute distress. Well developed, well nourished. HEENT: Pupils are round and equally reacting to light. EOMI. No scleral icterus. No conjunctival pallor. Normocephalic, atraumatic. No pharyngeal erythema. No thyromegaly. CARDIOVASCULAR: S1 and S2 present. No murmurs, rubs, or gallops. PULMONARY: Coarse breath sound bilaterally, no wheezing or crackles. ABDOMEN: Soft, nontender, nondistended, normoactive bowel sounds. No palpable organomegaly. MUSCULOSKELETAL: No joint swelling or deformity. EXTREMITIES: No cyanosis, clubbing, or pedal edema. NEUROLOGICAL: Gross neurological examination did not reveal any focal deficits. SKIN: No rashes. Assessment and plan NSTEMI Acute hypoxemic respiratory failure Acute influenza a infection Bacterial pneumonia Hypertension Hyperlipidemia Monitor vital signs Monitor CBC Monitor CMP Continue telemetry monitoring Continue pharmacy dose Coumadin Continue Tamiflu Continue breathing treatments Cardiology following Pulmonology following Labs and medication were reviewed.. Continue same treatment. Continue with symptomatic treatment. Resume home medication. Monitor labs and vitals. DVT and GI prophylaxis. Further recommendations as per clinical course of the patient Dictation was produced using [employer] dictation software. please excuse any grammatical, word or spelling errors. Objective - Vital Signs Vital signs: Vital Signs Temp 97.9 F 08/18/24 09:26 Pulse 86 08/18/24 09:26 Resp 16 08/18/24 09:26 BP 142/91 08/18/24 09:26 Pulse Ox 96 08/18/24 09:26 FiO2 Intake & Output 08/17/24 08/18/24 08/18/24 18:59 06:59 18:59 Intake Total 236 320 Output Total 200 200 600 Balance 36 -200 -280 Weight 84.1 kg Intake: IV 20 Invasive Line 2 20 Oral 236 300 Output: Urine 200 200 600 Other: Voiding Method Toilet Toilet # Voids 2 2 - Labs CBC & Chem 7: 08/16/24 05:39 08/18/24 07:27 Labs: Abnormal Lab Results - Last 24 Hours (Table) 08/18/24 08/18/24 Range/Units 07:27 07:27 PT 21.1 H (10.0-12.5) sec INR 2.1 H (<1.2) BUN 28 H (9-20) mg/dL
--- NOTE | 2024-08-18 14:36 | P.PN ---
Subjective Progress Note Date: 08/18/24 Principal diagnosis: Influenza. This is a 79-year-old male patient with a known history of stage cancer status post prostatectomy, atrial fibrillation anticoagulated with warfarin, hypertension, hyperlipidemia, coronary disease with previous stent placement, chronic tobacco dependence who presented here to the emergency room last evening with complaints of increasing shortness of breath. His O2 saturation on room air per EMS was 88%. Chest x-ray reveals patchy mid and lower lobe airspace opacities bilaterally. Evidence of COPD. EKG reveals atrial fibrillation with nonspecific ST and T wave abnormalities. White count 5.2. Hemoglobin 12.3. Platelets 105. INR 2.1. Sodium 138. Potassium 3.6. Bicarb 20. BUN 29. Creatinine 1.27. Glucose 87. Troponins 4.63, 4.21, 3.22. proBNP 7790. Procalcitonin negative. Viral screen positive for influenza A. He has been been initiated on a heparin drip. He is seen today in consultation in the emergency department. He is currently sitting up on a stretcher. Awake and alert in no acute distress. He does have a loose productive cough of yellow sputum. Some chest tightness with coughing. He is maintaining good O2 saturations in the mid 90s on 2 L/min per nasal cannula. He has been afebrile. Hypertensive. The patient is seen today August 16, 2024 in follow-up in the emergency department. He is currently resting fairly comfortably in bed. Maintaining O2 saturations in the 90s on 6 L/min per nasal cannula. Still with some scattered rhonchi. He remains on a heparin drip. His procalcitonin was negative at 0.08. Antibiotics will be discontinued. He is continued on Tamiflu. White count 6.1. Hemoglobin 12.5. Platelets 118. Sodium 141. Potassium 3.5. Bicarb 30. BUN 31. Creatinine 1.11. Glucose 63. Chest x-ray continues to show patchy infiltrate in the left mid and lower lung. Echocardiogram revealed mildly impaired left ventricular systolic function with an ejection fraction of 40 to 45%. Moderate mitral regurgitation. Progress note dated August 17, 2024. 79-year-old male who is seen today in room 379. He is sitting in a chair next to the hospital bed. He is on 2 L of oxygen. The patient is feeling much better. He has a big smile on his face. Current laboratory data includes a PT of 21.3, INR 2.1, PTT of 31.8. Sodium 140, potassium 3.2, chlorides 104, CO2 30, BUN 24, creatinine 0.96. Glucose is 87. Progress note dated August 18, 2024. 79-year-old male seen in room 379. The patient is resting comfortably in bed. He is on room air. The patient is not receiving any IV fluids. The patient was admitted with a diagnosis of influenza A infection. The patient denies any significant shortness of breath, cough, wheezing, chest tightness, or phlegm production. I am not sure why the patient is actually still in the hospital. Current labs include a PT of 21.1 INR 2.1. Sodium 141, potassium 3.9, chlorides 106, CO2 26, BUN 28, and creatinine 1.07. Objective - Vital Signs Vital signs: Vital Signs Temp 97.9 F 08/18/24 09:26 Pulse 86 08/18/24 09:26 Resp 16 08/18/24 09:26 BP 142/91 08/18/24 09:26 Pulse Ox 96 08/18/24 09:26 FiO2 Intake & Output 08/17/24 08/18/24 08/18/24 18:59 06:59 18:59 Intake Total 236 320 Output Total 200 200 600 Balance 36 -200 -280 Weight 84.1 kg Intake: IV 20 Invasive Line 2 20 Oral 236 300 Output: Urine 200 200 600 Other: Voiding Method Toilet Toilet # Voids 2 2 - Exam No acute distress, oriented 3. Currently on room air. HEENT examination is grossly unremarkable. Mucous membranes are moist. No oral lesions. Neck supple. Full range of motion. No adenopathy thyromegaly or neck vein distention. Cardiovascular examination reveals an irregular rhythm and rate. S1-S2 normal. No S3 or S4. No discernible murmur noted. Lungs reveal mostly clear breath sound. Minimal crackles. No wheezes or rhonchi. Breath sounds equal bilaterally. Abdomen soft bowel sounds are heard. No masses or tenderness. Extremities are intact. No cyanosis clubbing or edema. Skin is without rash or lesion. Neurologic examination is brief but nonfocal. - Labs CBC & Chem 7: 08/16/24 05:39 08/18/24 07:27 Labs: Abnormal Lab Results - Last 24 Hours (Table) 08/18/24 08/18/24 Range/Units 07:27 07:27 PT 21.1 H (10.0-12.5) sec INR 2.1 H (<1.2) BUN 28 H (9-20) mg/dL Assessment and Plan Assessment: Acute hypoxemic respiratory failure secondary to systolic congestive heart failure versus viral pneumonia. Non-ST segment elevation myocardial infarction. Acute influenza A infection, initiated on Tamiflu. Acute kidney injury. Coronary artery disease with previous stent placement to the LAD. Ischemic cardiomyopathy with previous ejection fraction of 45%. Valvular heart disease. Hypertension. Hyperlipidemia. Chronic and ongoing tobacco dependence. Suspect underlying chronic obstructive pulmonary disease. Plan: Plan dated August 17, 2024. The patient is seen today in room 379. He is sitting in a chair next to his hospital bed. He is on 2 L of oxygen. The patient is feeling much better than he did yesterday when we saw him. We actually saw him 2 days ago in the emergency department. Labs, x-rays, medications are reviewed. We will continue to follow the patient, make recommendations along the way. The patient is on Tamiflu for his influenza A infection. Prognosis is guarded. Plan dated August 18, 2024. The patient is seen today in room 379. The patient is on room air. He is not receiving any IV fluids. The patient states that he is feeling much better. The patient was placed on Tamiflu. That should be continued for total of 5 days. The patient was admitted with a diagnosis of influenza A infection. Actually, I am not sure why the patient still in the hospital. In my opinion, he could be discharged home. There is nothing we are doing here in the hospital that he could do at home. Will leave that up to the primary service. Time with Patient: Less than 30
--- NOTE | 2024-08-18 14:50 | P.PN ---
Subjective Progress Note Date: 08/18/24 History of Present Illness: The patient is a 79-year-old male with a known history of CAD, history of mitral regurgitation who presented with symptoms of progressive dyspnea and was found to have influenza A. He is feeling better this morning. He denies any chest discomfort, dizziness or palpitations. His troponin was elevated. He denies any nausea or vomiting. He is in atrial fibrillation which is chronic. August 17: The patient is feeling better today, his breathing is better. He denies any chest discomfort, dizziness or palpitations. His cough is better. He denies any nausea or vomiting. Hemodynamically he is stable. He underwent an echocardiogram that showed moderate mitral regurgitation. His ejection fraction is 40 to 45%. Medications: Coumadin, amlodipine 10 mg daily, aspirin, Lipitor 80 mg daily, Zithromax, Rocephin, clonidine 0.1 mg twice a day, metoprolol succinate 50 mg daily, Tamiflu, valsartan 160 mg twice daily Progress note 08/18/2024 BP 142/91, heart rate 86 bpm. Continues to be in rate controlled atrial fibrillation. Physical Examination: 79-year-old male, alert oriented no apparent distress,Blood pressure 130/88, Heart rate 80 Head: Normocephalic. Eyes: Sclerae nonicteric. Neck: Good carotid upstroke, no bruit, no jugular venous distention. Lungs: Clear to auscultation Heart: Irregular rate and rhythm, S1-S2, no S3, no rub. Holosystolic murmur at the apex. Abdomen: Soft nontender, positive bowel sounds no organomegaly. Extremities: No edema, intact distal pulses. Labs: INR 2.1, potassium 3.2, BUN 24, creatinine 0.96 Impression: 1. Influenza A infection 2. Non-STEMI probably exacerbated by the infection 3. History of CAD with ectatic vessel and history of moderate mitral regurgitation 4. Chronic persistent atrial fibrillation 5. History of mitral regurgitation 6. Hypertension 8. Hyperlipidemia Plan: 1. Continue present therapy 2. Increase physical activity 3. Follow INR 4. Consider repeating coronary angiography as outpatient once infectious process resolved 5. Depending on his progress further recommendations will be made Objective - Vital Signs Vital signs: Vital Signs Temp 97.9 F 08/18/24 09:26 Pulse 86 08/18/24 09:26 Resp 16 08/18/24 09:26 BP 142/91 08/18/24 09:26 Pulse Ox 96 08/18/24 09:26 FiO2 Intake & Output 08/17/24 08/18/24 08/18/24 18:59 06:59 18:59 Intake Total 236 320 Output Total 200 200 600 Balance 36 -200 -280 Weight 84.1 kg Intake: IV 20 Invasive Line 2 20 Oral 236 300 Output: Urine 200 200 600 Other: Voiding Method Toilet Toilet # Voids 2 2 - Labs CBC & Chem 7: 08/16/24 05:39 08/18/24 07:27 Labs: Abnormal Lab Results - Last 24 Hours (Table) 08/18/24 08/18/24 Range/Units 07:27 07:27 PT 21.1 H (10.0-12.5) sec INR 2.1 H (<1.2) BUN 28 H (9-20) mg/dL
[2024-08-18] MEDS: WARFARIN 5 MG TAB PO ONE (16:56)
[2024-08-19 08:00] LABS: INR 2.2 (<1.2); Prothrombin Time 22.5 sec (10.0-12.5)
[2024-08-19 09:03] VITALS: BP 133/87; PULSE 82; RESP 18; TEMP 98.1
--- NOTE | 2024-08-19 12:16 | P.DS ---
Providers Date of admission: 08/15/24 01:03 Expected date of discharge: 08/19/24 Attending physician: Raymundo Vargas Consults: 08/15/24 01:03 Consult Physician Routine Consulting Provider: Tolu Ye Consult Reason/Comments: NSTEMI Do you want consulting provider notified?: Yes 08/15/24 10:18 Consult Physician Routine Consulting Provider: Gadiel Thakur Consult Reason/Comments: Acute respiratory failure, pneumonia Do you want consulting provider notified?: Yes Primary care physician: Raymundo Vargas [facility] Course: Discharge diagnosis Acute hypoxic respiratory failure Acute influenza A Pneumonia Non-STEMI History of essential hypertension History of hyperlipidemia Hospital course patient is 79-year-old gentleman with past medical history significant for prostate cancer, hyperlipidemia, hypertension, atrial fibrillation who presented to the ER for shortness of breath. Patient states that he was all right 1 day back when started noticing shortness of breath, shortness of breath was sudden onset, patient stated that he felt like he could not get enough air. Shortness of breath was present on rest as on exertion. There was no complaint of chest pain. There was no complaint of fever or chills. There was no complaint of orthopnea or PND. Because of this sudden onset of shortness of breath, EMS was called and when they came to patient house, patient oxygen was 88%. Patient was brought to the ER Initial lab work done in the ER showed WBC 5.2, hemoglobin 12.3, platelet count 105, sodium 1 3, potassium 3.6, BUN 29, creatinine 1.27, troponin 4.630 Influenza A detected Influenza B not detected RSV not detected COVID-19 not detected EKG done in the ER showed heart rate of 87, irregular rhythm, no ST segment elevation or depression seen, no T-wave inversions seen. Chest x-ray done in the ER showed patchy mid and lower lung airspace opacities concerning for pneumonia Patient admitted to internal medicine service Dr. Bee's group was covering 08/11/2024 through 08/18/2024 On 08/19/2024 patient is alert and oriented x 3. Patient has been cleared for discharge from cardiology and pulmonary services. Patient to receive last dose of Tamiflu prior to discharge. Patient reports significant improvement. Patient denies chest pain or shortness of breath. Patient denies nausea vomiting or diarrhea. Patient denies any urinary burning or frequency Patient Condition at Discharge: Stable Plan - Discharge Summary Discharge Rx Participant: No New Discharge Prescriptions: New Aspirin 81 mg PO DAILY 30 Days #30 tab Continue Warfarin [Coumadin] 5 mg PO WE@2099 Metoprolol Succinate (ER) [Toprol XL] 50 mg PO DAILY Amlodipine Besylate/Valsartan [Amlodipine Besylate/Valsartan 10-160 mg] 1 tab PO HS Nitroglycerin 0.4 mg SL Q5M PRN PRN Reason: Chest Pain cloNIDine HCL [Catapres] 0.2 mg PO BID Atorvastatin [Lipitor] 20 mg PO HS Potassium Chloride ER [K-Dur 20] 20 meq PO BID Warfarin [Coumadin] 2.5 mg PO @2099 Discharge Medication List Amlodipine Besylate/Valsartan [Amlodipine Besylate/Valsartan 10-160 mg] 1 tab PO HS 10/31/23 [History] Atorvastatin [Lipitor] 20 mg PO HS 10/31/23 [History] Metoprolol Succinate (ER) [Toprol XL] 50 mg PO DAILY 10/31/23 [History] Nitroglycerin 0.4 mg SL Q5M PRN 10/31/23 [History] Potassium Chloride ER [K-Dur 20] 20 meq PO BID 10/31/23 [History] Warfarin [Coumadin] 5 mg PO WE@209910/31/23 [History] cloNIDine HCL [Catapres] 0.2 mg PO BID 10/31/23 [History] Warfarin [Coumadin] 2.5 mg PO SA@209908/15/24 [History] Aspirin 81 mg PO DAILY 30 Days #30 tab 08/19/24 [Rx] Follow up Appointment(s)/Referral(s): Aliya Mann MD [STAFF PHYSICIAN] - 2 Weeks Raymundo Vargas MD [Primary Care Provider] - 1-2 days Activity/Diet/Wound Care/Special Instructions: please give last dose of tamiflu prior to d/c Discharge Disposition: HOME SELF-CARE
--- NOTE | 2024-08-19 14:15 | P.PN ---
Subjective Progress Note Date: 08/19/24 History of Present Illness: The patient is a 79-year-old male with a known history of CAD, history of mitral regurgitation who presented with symptoms of progressive dyspnea and was found to have influenza A. He is feeling better this morning. He denies any chest discomfort, dizziness or palpitations. His troponin was elevated. He denies any nausea or vomiting. He is in atrial fibrillation which is chronic. August 17: The patient is feeling better today, his breathing is better. He denies any chest discomfort, dizziness or palpitations. His cough is better. He denies any nausea or vomiting. Hemodynamically he is stable. He underwent an echocardiogram that showed moderate mitral regurgitation. His ejection fraction is 40 to 45%. Medications: Coumadin, amlodipine 10 mg daily, aspirin, Lipitor 80 mg daily, Zithromax, Rocephin, clonidine 0.1 mg twice a day, metoprolol succinate 50 mg daily, Tamiflu, valsartan 160 mg twice daily Labs: INR 2.1, potassium 3.2, BUN 24, creatinine 0.96 Progress note 08/18/2024 BP 142/91, heart rate 86 bpm. Continues to be in rate controlled atrial fib rillation. 08/19/24 Patient seen and examined. He states his breathing is better. He denies having any chest pain. Patient's also updated. Blood pressure 133/87, heart rate 82, pulse ox 97% on room air. INR 2.2. Physical Examination: 79-year-old male, alert oriented no apparent distress Head: Normocephalic. Eyes: Sclerae nonicteric. Neck: Good carotid upstroke, no bruit, no jugular venous distention. Lungs: Clear to auscultation Heart: Irregular rate and rhythm, S1-S2, no S3, no rub. Holosystolic murmur at the apex. Abdomen: Soft nontender, positive bowel sounds no organomegaly. Extremities: No edema, intact distal pulses. Impression: 1. Influenza A infection 2. Non-STEMI probably exacerbated by the infection 3. History of CAD with ectatic vessel and history of moderate mitral regurgitation 4. Chronic persistent atrial fibrillation 5. History of mitral regurgitation 6. Hypertension 8. Hyperlipidemia Plan: 1. Continue present therapy 2. Increase physical activity 3. Follow INR 4. Consider repeating coronary angiography as outpatient once infectious process resolved 5. Patient is cleared for discharge from cardiology perspective and may follow- up in the office with Dr. Mann in 1 to 2 weeks. Nurse practitioner note has been reviewed, I agree with documented findings and plan of care. Patient was seen and examined. Objective - Vital Signs Vital signs: Vital Signs Temp 98.1 F 08/19/24 09:02 Pulse 82 08/19/24 09:02 Resp 18 08/19/24 09:02 BP 133/87 08/19/24 09:02 Pulse Ox 97 08/19/24 09:02 FiO2 Intake & Output 08/18/24 08/19/24 08/19/24 18:59 06:59 18:59 Intake Total 860 260 180 Output Total 600 600 150 Balance 260 -340 30 Weight 94.2 kg Intake: IV 20 20 Invasive Line 2 20 20 Oral 840 240 180 Output: Urine 600 600 150 Other: Voiding Method Toilet Toilet Urinal # Voids 2 - Labs CBC & Chem 7: 08/16/24 05:39 08/18/24 07:27 Labs: Abnormal Lab Results - Last 24 Hours (Table) 08/19/24 Range/Units 06:49 PT 22.5 H (10.0-12.5) sec INR 2.2 H (<1.2)
[2024-08-19] MEDS ORDERED: WARFARIN 5 MG TAB PO SCH (18:00)
--- NOTE | 2024-08-19 18:36 | PN ---
PROGRESS NOTE SUBJECTIVE: This is a 79-year-old male who was seen today in room 379. He is resting comfortably in bed. He is on room air. No IV fluids. The patient states that he hopefully is going to be discharged soon. He denies any shortness of breath, cough, wheezing, chest tightness, and phlegm production. He is feeling much better from a couple days ago when he was admitted. He was actually seen and admitted on August 15. PHYSICAL EXAMINATION: VITAL SIGNS: Current vital signs include temperature 98.1, heart rate 82, respiratory rate 18, blood pressure 133/87. Room air saturation 97%. GENERAL: He appears in no acute distress. HEENT: Grossly unremarkable. NECK: Supple. Full range of motion. No adenopathy. Neck veins are flat. CARDIOVASCULAR: Reveals irregular rhythm and rate. S1 and S2 are normal. Heart rate about 80. LUNGS: Reveal a few scattered rhonchi. No wheezes or crackles. Breath sounds equal. ABDOMEN: Soft. Bowel sounds are heard. EXTREMITIES: Intact. No cyanosis, clubbing, or edema. SKIN: Without rash. NEUROLOGIC: Brief but nonfocal. ASSESSMENT: 1. Acute hypoxemic respiratory failure secondary to systolic congestive heart failure versus viral pneumonia. 2. Jiy-JA-[id number] elevation myocardial infarction. 3. Acute influenza A infection. 4. Acute kidney injury. 5. Coronary artery disease with previous stent placement to the left anterior descending. 6. Ischemic cardiomyopathy with previous ejection fraction of 45%. 7. Valvular heart disease. 8. Hypertension. 9. Hyperlipidemia. 10.Chronic and ongoing tobacco dependence. 11.Probable chronic obstructive pulmonary disease. PLAN: The patient is doing well. He is on room air. No IV fluids. He is feeling much better. He continues on Tamiflu. He should complete 5 days of Tamiflu. No additional recommendations are made. Prognosis is guarded. He is counseled about the importance of smoking cessation. Labs, x-rays, and all medications are reviewed. MMODL / IJN: [id number] /
[2024-08-19] MEDS ORDERED: ATORVASTATIN 40 MG TAB PO SCH (21:00)
[2024-08-21] MEDS ORDERED: WARFARIN 2.5 MG TAB PO SCH (18:00)
== END 2024-08-19 13:20 | disposition home or self-care (01) | DRG 193 ==
LOC: EC 23:03 → 3SCARD 08-15 01:03
PROVIDERS: ADMIT Internal Medicine; ATTEND Internal Medicine
DX: J10.08 Influenza due to other identified influenza virus with other specified pneumonia (principal); I21.4 Non-ST elevation (NSTEMI) myocardial infarction; J96.01 Acute respiratory failure with hypoxia; I50.22 Chronic systolic (congestive) heart failure; I48.21 Permanent atrial fibrillation; N17.9 Acute kidney failure, unspecified; J15.9 Unspecified bacterial pneumonia; E78.5 Hyperlipidemia, unspecified; I11.0 Hypertensive heart disease with heart failure; I25.5 Ischemic cardiomyopathy; F17.200 Nicotine dependence, unspecified, uncomplicated; I25.10 Atherosclerotic heart disease of native coronary artery without angina pectoris; I34.0 Nonrheumatic mitral (valve) insufficiency; J44.0 Chronic obstructive pulmonary disease with (acute) lower respiratory infection; Z79.01 Long term (current) use of anticoagulants; Z79.899 Other long term (current) drug therapy; Z85.46 Personal history of malignant neoplasm of prostate; Z95.5 Presence of coronary angioplasty implant and graft; Z90.79 Acquired absence of other genital organ(s); Z88.1 Allergy status to other antibiotic agents
CPT/HCPCS: 36415; 71045; 71046; 80048; 80053; 80061; 81003; 83605; 83735; 83880; 84145; 84484; 85025; 85027; 85379; 85610; 85652; 85730; 86140; 87636; 93005; 93306; 94640; 96365; 96367; 96375; 99285

== ENCOUNTER → 2024-09-06 | Outpatient (CLI) | payer MEDICARE ==
--- NOTE | 2024-09-06 10:01 | XR ---
EXAMINATION TYPE: XR chest 2V DATE OF EXAM: 09/06/2024 COMPARISON: NONE CLINICAL INDICATION: Male, 79 years old with history of J18.9 pneumonia; , TECHNIQUE: XR chest 2V views of the chest. FINDINGS: Tortuosity of the aorta with atherosclerotic changes. Underlying COPD. Somewhat irregular nodular den sity in the right lobe medially. Possibly related superimposed structures. Cannot exclude a pulmonary nodule. No acute consolidation, pleural effusion or pneumothorax. Degenerative change of the spine. IMPRESSION: 1. No evidence of acute pneumonia or pulmonary edema. 2. Question right apical lung nodule recommend short-term follow-up CT chest. 3. Ectasia or aneurysmal dilation thoracic aorta. This could also be evaluated with scan. [facility], , 09/06/2024 9:58 AM
== END | disposition home or self-care (01) ==
LOC: RADXRMAIN 09:36
PROVIDERS: ATTEND Internal Medicine
DX: J18.9 Pneumonia, unspecified organism (principal); I77.810 Thoracic aortic ectasia
CPT/HCPCS: 71046

== ENCOUNTER → 2024-09-14 | Day surgery (SDC) | payer MEDICARE ==
[~2024-09-14] MED LIST changes: +AMLODIPINE BESYLATE PO SCH; +ASPIRIN 325 MG TAB PO ONE; +ASPIRIN 81 MG PO SCH; +ATORVASTATIN 20 MG TAB PO SCH; +ATORVASTATIN 80 MG TAB PO ONE; +ATROPINE SULFATE 0.1 MG/ML 10ML SYRINGE IV PRN; +BENZOCAINE SPRAY 1 CAN TOPICAL PRN; +CLOPIDOGREL 75 MG TAB PO SCH; +MAG HYDROX/AL HYDROX/SIMETH 30 ML CUP PO PRN; +METOPROLOL SUCCINATE (ER) 50 MG TAB.ER.24H PO SCH; +POTASSIUM CHLORIDE ER 20 MEQ TAB.ER PO SCH; +RX INFO: IV CONTRAST WAS GIVEN 1 EACH MISC MISCELLANE PRN; +SODIUM CHLORIDE 0.9% 1,000 ML in EMPTY BAG 1 BAG IV SCH; +VALSARTAN PO SCH; +WARFARIN 2.5 MG TAB PO SCH; +WARFARIN 5 MG TAB PO ONE; +WARFARIN 5 MG TAB PO SCH; +ZOLPIDEM 5 MG TAB PO PRN; +[UNRECOGNIZED DRUG - OTHER] PO SCH; +cloNIDine HCL 0.2 MG TAB PO SCH; +fentaNYL (PF) 50 MCG/ML 5 ML AMP IVP PRN
[2024-09-14] MEDS: EMPTY BAG 1 BAG with SODIUM CHLORIDE 0.9% 1,000 ML IV ONE (06:00)
[2024-09-14] MEDS: IV FLUID CONTINUATION 1,000 ML IV ONE (06:00)
[2024-09-14 06:17] LABS: Basophils % (A) 0 %; Eosinophils # (A) 0.1 k/uL (0-0.7); Eosinophils % (A) 1 %; HCT 38.3 % (39.0-53.0); HGB 12.7 gm/dL (13.0-17.5); Lymphocytes % (A) 14 %; MCH 33.8 pg (25.0-35.0); MCHC 33.2 g/dL (31.0-37.0); MCV 101.9 fL (80.0-100.0); Macrocytosis Slight; Mean Platelet Volume 7.3; Monocytes # (A) 0.6 k/uL (0-1.0); Monocytes % (A) 8 %; Neutrophils # (A) 5.4 k/uL (1.3-7.7); Neutrophils % (A) 74 %; RBC 3.76 m/uL (4.30-5.90); RDW 14.6 % (11.5-15.5); WBC 7.2 k/uL (3.8-10.6)
[2024-09-14 06:19] LABS: Platelet Count 186 k/uL (150-450)
[2024-09-14 06:25] VITALS: TEMP 98.2
[2024-09-14 06:26] LABS: INR 1.7 (<1.2); Prothrombin Time 17.2 sec (10.0-12.5)
[2024-09-14] MEDS: BENZOCAINE SPRAY 1 CAN TOPICAL ONE (07:03)
[2024-09-14] MEDS: MIDAZOLAM 2 MG/2 ML VIAL IVP ONE ×2 (07:06→07:11)
[2024-09-14] MEDS: fentaNYL (PF) 50 MCG/ML 2 ML AMP IVP ONE (07:06)
[2024-09-14] MEDS: IV FLUID CONTINUATION 800 ML IV ONE (07:10)
--- NOTE | 2024-09-14 07:28 | P.PCN ---
Date of Procedure: 09/14/24 Description of Procedure: Indication: Mitral regurgitation Procedure Description: After explaining the procedure to the patient, it's risk and complications, blood pressure, heart rate and O2 saturation were monitored. The throat was sprayed with Cetacaine. Patient received 3 mg intravenous Versed, 50 mcg intravenous fentanyl. The probe was introduced into the esophagus without difficulty. Images were obtained. Following that, the probe was removed. There was no immediate complication. Findings: Left atrial size is dilated, left atrial appendage is normal. Left ventricular systolic function is mildly impaired with estimate ejection fraction at 45%. The aortic valve is a tricuspid valve with mild fibrocalcific changes and preserved opening. Mild thickening of the mitral valve leaflets was noted. Tricuspid valve and pulmonic valve appears to be normal. No pericardial effusion was noted. Contrast bubble study revealed no shunting across the interatrial septum. Doppler: Pulse wave and color Doppler were obtained, and revealed moderate severe mitral regurgitation, central with eccentric moderate tricuspid regurgitation. Mild aortic and trace pulmonic regurgitation was noted. No shunting by color Doppler study was noted. Conclusion: 1. Dilated left atrium with normal appearance of the left atrial appendage 2. Mild global hypokinesis of the left ventricle 3. Moderate severe mitral with moderate tricuspid regurgitation 4. Mild aortic and trace pulmonic regurgitation 5. No shunting across the interatrial septum Duration of sedation 15 minutes.
[2024-09-14] MEDS: LIDOCAINE 1% INJ 10MG/ML (20 ML MDV) SQ ONE (07:31)
[2024-09-14] MEDS: VERAPAMIL SYRINGE (5 MG/10 ML) INTRAARTER ONE (07:32)
[2024-09-14] MEDS: HEPARIN SODIUM,PORCINE 10,000 UNIT in SODIUM CHLORIDE 0.9% 1,000 ML IRRIGATION ONE (07:51)
[2024-09-14] MEDS: HEPARIN SODIUM 1,000 UN/ML (10ML VL) IVP ONE (07:51)
[2024-09-14] MEDS: HEPARIN SODIUM,PORCINE (1 ML) 2,500 UNIT in SODIUM CHLORIDE 0.9% 250 ML IRRIGATION ONE (07:52)
[2024-09-14] MEDS: IOPAMIDOL-370 100ML BTL INJ ONE ×2 (08:00→08:45)
[2024-09-14 08:01] LABS: O2 Sat Blood Gas 63.6 %
[2024-09-14 08:02] LABS: O2 Sat Blood Gas 94.5 %
[2024-09-14 08:06] LABS: O2 Sat Blood Gas 56.2 %
[2024-09-14] MEDS: MIDAZOLAM 2 MG/2 ML VIAL IV PRN (08:23)
[2024-09-14] MEDS: CLOPIDOGREL 75 MG TAB PO ONE (08:24)
[2024-09-14] MEDS: ONDANSETRON 4 MG/2 ML VIAL IVP ONE ×2 (09:00→09:05)
--- NOTE | 2024-09-14 09:01 | P.CARDCATH ---
Date of Procedure: 09/14/24 Description of Procedure: Cardiac Catheterization: The patient is a 79-year-old male with known history of CAD, cardiomyopathy, atrial fibrillation and mitral regurgitation who had a recent non-STEMI and had evidence of progression of his mitral regurgitation. Recommendations were made regarding cardiac catheterization, the risks and the complications were discussed with the patient who is in full understanding and agreement. Procedure Description: Patient was brought to crime lab analyst in fasting semi-sedated state after receiving Fentanyl and Benadryl achieiving moderate conscious sedated state. Using Xylocaine Anesthesia and modified Seldinger technique, a 6-Austrian sheath was introduced in the right radial artery . The venous sheath in the right basilic vein was exchanged to a 6 Austrian sheath. Right heart catheterization was performed using Victoria-Sebas catheter, multiple pressure and samples were obtained, cardiac output by thermodilution was calculated. Subsequently, selective coronary angiography was performed using a 5-Austrian 3.5 bend right Akhil and 4 bend left Akhil catheter. Multiple views of the coronary artery including hemiaxial views were obtained. The 5 Austrian pigtail catheter was used to cross the aortic valve and LVEDP was calculated. PCI: After removing the catheters a 6 Austrian AL 0.75 guiding catheter was introduced into the system and after cannulating the right coronary ostium a 0.014 BMW J- wire was positioned in the distal RCA. Subsequently a 3.0 x 12 mm trek balloon was advanced and 2 inflation at 8 tonio were done. Subsequently a [place] eye IVUS catheter was introduced, artifact from the catheters were noted but revealed a distal lumen measuring 4.5 to 5 mm in diameter. After removing the catheter a 4.5 x 23 mm Xience yuri point stent was advanced and deployed at 16 tonio. Repeat IVUS imaging was performed and revealed mild under deployment in th e mid segment of the stent. At that time a 5.0 x 15 mm NC trek balloon was advanced and 2 inflations at 12 tonio were done. Following the last inflation the balloon and the wire were removed. Images were obtained and revealed stable successful stenting. Following that, catheter and sheath were removed. Hemostasis was obtained with deployment of vascular band and compression of the right brachial area. There was no immediate complication. Patient was returned to room in stable condition. Of note, the patient received a total of 6500 units of intravenous heparin as well as intra-arterial verapamil. His ACT was monitored. He received an oral loading dose of clopidogrel. He had no chest discomfort but he had EKG changes that resolved at the end of the procedure. Findings: Fluoroscopy: Calcifications of the right coronary artery was noted. Left main: This is a large ectatic vessel bifurcating into LAD and left circumflex, left main has no obstructive disease. LAD: This is a large size vessel, reaching to the apex the stented segment in the mid RCA is patent. The LAD proximally is ectatic and has 20 to 30% plaque. The first diagonal branch that is moderate in caliber has a mid segment lesion of about 70%, the rest of the vessel has no high-grade stenosis Left circumflex: This is a large nondominant vessel giving rise to 2 obtuse marginal branch. The first 1 is the larger 1 it is ectatic throughout its course. After the takeoff of the first obtuse marginal branch there is a 90% stenosis and there is another plaque of 80% in the midsegment obtuse marginal branch. The rest of the vessel has no high-grade stenosis. RCA: This is a large dominant vessel, ectatic throughout its course. Bifurcating distally to PDA and PLV. The proximal RCA has a 99% stenosis. There is diffuse intimal disease in the PLV. Left Ventriculogram: Not performed Hemodynamics: Pulmonary artery saturation 64% right atrial saturation 56% arterial saturation 95%. Cardiac output by thermodilution 5.3 L/min with an index of 2.4 L/min/m. Pulmonary artery systolic pressure of 44 with a diastolic of 18 and a mean of 28 mmHg. Pulmonary capillary wedge pressure V wave of 20 with a mean of 17 mmHg. Right ventricle systolic pressure 40 with an end-diastolic of 10 mmHg. Right atrial pressure V wave of 12 with a mean of 12 mmHg. There was no gradient across the aortic valve, left ventricular end- diastolic pressure of 10 to 12 mmHg. Conclusion: 1. Severe stenosis in the proximal RCA 2. Severe stenosis in the mid left circumflex 3. Patent stent in the LAD with moderate severe stenosis in the first diagonal branch 4. Mild pulmonary hypertension Successful stenting of the proximal RCA with reduction of stenosis from 99% to less than 5% with IVUS imaging and [id number]-3 flow. Recommendations: The patient will continue on aspirin and clopidogrel in addition to warfarin for a week then the aspirin will be stopped and he will continue on warfarin and clopidogrel for 6 months without any interruption. Further evaluation of the left circumflex territory will be done to see if staged angioplasty is needed. Aggressive coronary risks modification will be continued, maintaining LDL to below 70 mg/dL. The findings and the recommendations were discussed with the patient and the family and they were in full understanding and agreement. Duration of sedation is 65 minutes.
[2024-09-14 13:46] VITALS: BP 129/85; PULSE 80; RESP 12
== END | disposition home or self-care (01) ==
LOC: CATHCVL 05:40
PROVIDERS: ATTEND Internal Medicine Interventional Cardiology
DX: I25.10 Atherosclerotic heart disease of native coronary artery without angina pectoris (principal); I08.1 Rheumatic disorders of both mitral and tricuspid valves; I73.9 Peripheral vascular disease, unspecified; I48.20 Chronic atrial fibrillation, unspecified; I71.21 Aneurysm of the ascending aorta, without rupture; I27.20 Pulmonary hypertension, unspecified; F17.210 Nicotine dependence, cigarettes, uncomplicated; E78.2 Mixed hyperlipidemia; Z95.5 Presence of coronary angioplasty implant and graft; Z79.02 Long term (current) use of antithrombotics/antiplatelets; Z79.899 Other long term (current) drug therapy
CPT/HCPCS: 93312; 93320; 93325; 92978; 93460; 85018; 82810; 85025; 85610; C9600; C1769 ×4; C1894; C1725 ×2; C1751; C1753; C1874 ×2; C1887; J2250; J1644 ×3; J2405; J2003; J3010; Q9967

== ENCOUNTER → 2025-02-16 | Outpatient (CLI) | payer MEDICARE ==
[2025-02-16 15:47] LABS: NT-Pro-B-Type Natriuretic Pept 1068 pg/mL (0-450)
[2025-02-16 15:53] LABS: Anion Gap 11.80 mmol/L (4.00-12.00); BUN/Creat Ratio 18.86 Ratio (12.00-20.00); Blood Urea Nitrogen 26.4 mg/dL (9.0-27.0); Calcium 9.2 mg/dL (8.7-10.3); Carbon Dioxide 24.2 mmol/L (21.6-31.8); Chloride 106 mmol/L (96-109); Glucose 116 mg/dL (70-110); Potassium 3.2 mmol/L (3.5-5.5); Sodium 142 mmol/L (135-145)
== END | disposition home or self-care (01) ==
LOC: LABWHC1 09:05
PROVIDERS: ATTEND Nurse Practitioner Adult Health
DX: R60.0 Localized edema (principal)
CPT/HCPCS: 36415; 80048; 83880